=== PATIENT | male | born 1945 | race Caucasian/White ===

== ENCOUNTER 2016-06-15 12:11 | Observation (INO) | payer MEDICARE, OTHER ==
[~2016-06-15] VITALS: Ht 180.3 cm; Wt 76.7 kg
[2016-06-15 12:51] LABS: BASO % 0.2 % (0.0-1.0); EOS % 0.5 % (0.0-3.0); LARGE UNSTAINED CELL # 0.1 K/mm3 (0.0-0.4); LARGE UNSTAINED CELL % 1.2 % (0.0-4.0); LYMPH # 0.8 K/mm3 (1.5-4.5); LYMPH % 16.8 % (24.0-44.0); MEAN CORPUSCULAR HEMOGLOBIN 27.9 pg (27.0-33.0); MEAN CORPUSCULAR HGB CONC 32.5 g/dl (32.0-36.5); MEAN CORPUSCULAR VOLUME 85.8 fl (80.0-96.0); MONO # 0.2 K/mm3 (0.0-0.8); MONO % 4.9 % (0.0-5.0); NEUTROPHILS # 3.2 K/mm3 (1.8-7.7); NEUTROPHILS % 76.3 % (36.0-66.0); PLATELET COUNT, AUTOMATED 327 k/mm3 (150-450); WHITE BLOOD COUNT 4.2 K/mm3 (4.0-10.0)
--- NOTE | 2016-06-15 13:00 | REP ---
Clinical: Chest pain . Comparison: 03/30/2016 . Findings: The mediastinum and cardiac silhouette are stable and within normal limits for portable technique. The lung seals are clear without acute consolidation, effusion, or pneumothorax. Skeletal structures are intact. Impression: Normal portable chest x-ray Signed by Stanley Tatum MD 06/15/2016 12:51 P
[2016-06-15 13:19] LABS: ANION GAP 12 MEQ/L (8-16); BLOOD UREA NITROGEN 14 MG/DL (7-18); CALCIUM LEVEL 9.1 MG/DL (8.8-10.2); CARBON DIOXIDE LEVEL 24 MEQ/L (21-32); CHLORIDE LEVEL 104 MEQ/L (98-107); CREATININE FOR GFR 0.93 MG/DL (0.70-1.30); GLOMERULAR FILTRATION RATE > 60.0 (>42); GLUCOSE, FASTING 99 MG/DL (83-110); POTASSIUM SERUM 3.9 MEQ/L (3.5-5.1); SODIUM LEVEL 140 MEQ/L (136-145)
[2016-06-15] MEDS ORDERED: ISOVUE-370 76% 100ML VIAL (Q9967) As Ordered ONE (13:40)
--- NOTE | 2016-06-15 14:21 | REP ---
Clinical: Acute chest pain with elevated D-dimer levels. Technique: Axial contrast enhanced images from the thoracic inlet to the upper abdomen using 100 ml Isovue 370 intravenous contrast material with coronal and sagittal re-formations. Findings: Satisfactory enhancement of the pulmonary vasculature is achieved and no filling defects are identified to suggest pulmonary embolus. Thoracic aorta is normal caliber without aneurysm or dissection. Heart and pericardium are normal. Lung seals demonstrate chronic emphysematous changes with bronchiectasis and right lower lobe scarring. No acute consolidation, pleural effusion or pneumothorax. No significant adenopathy. Musculoskeletal structures demonstrate age-related changes without focal osseous abnormality. Impression: No evidence for pulmonary embolus. Chronic emphysematous changes with bronchiectasis and right lower lobe scarring. No acute pleuroparenchymal or mediastinal process. Signed by Stanley Tatum MD 06/15/2016 02:12 P
[2016-06-15] MEDS ORDERED: GI COCKTAIL 50ML BTL(HYOSCYAMINE/MAALOX/LIDOCAINE VISCOUS)(1:3:1) As Ordered ONE (15:42)
[2016-06-15 16:09] LABS: ALBUMIN/GLOBULIN RATIO 1.03 (1.00-1.93); ALKALINE PHOSPHATASE 78 U/L (45-117); ALT/SGPT 21 U/L (12-78); AST/SGOT 23 U/L (15-37); BILIRUBIN,DIRECT < 0.1 MG/DL (0.0-0.2); BILIRUBIN,TOTAL 0.2 MG/DL (0.2-1.0); TOTAL PROTEIN 5.9 GM/DL (6.4-8.2)
[2016-06-15] MEDS ORDERED: METH2.5TA PO (16:44)
[2016-06-15] MEDS ORDERED: HYDR200T3 PO (16:44)
[2016-06-15] MEDS ORDERED: NITR4TASL SL (16:44)
[2016-06-15] MEDS ORDERED: FAMO1TAB11 PO (16:44)
[2016-06-15] MEDS ORDERED: ROSU10TA2 PO (16:44)
[2016-06-15] MEDS ORDERED: FOLI1TAB2 PO (16:48)
[2016-06-15] MEDS ORDERED: TUNA OMEGA 3 OIL PO (16:48)
[2016-06-15] MEDS ORDERED: ASPI1TAB PO (16:48)
[2016-06-15] MEDS ORDERED: [UNRECOGNIZED DRUG - OTHER] PO (16:48)
[2016-06-15] MEDS ORDERED: PROB1TAB PO (16:48)
[2016-06-15] MEDS ORDERED: [UNRECOGNIZED DRUG - OTHER] PO (16:48)
[2016-06-15] MEDS ORDERED: SUCRALFATE 1 GM TAB As Ordered ONE (17:11)
[2016-06-15] MEDS ORDERED: ONDANSETRON 4MG/2ML VIAL (J2405) IV PRN (20:45)
[2016-06-15 21:30] VITALS: BP 114/60
[2016-06-15 22:00] VITALS: PULSE 77
[2016-06-15] MEDS ORDERED: NITROGLYCERIN 0.4 MG SUBL TABLET SL PRN (22:45)
[2016-06-15] MEDS ORDERED: ACETAMINOPHEN 325 MG TAB As Ordered ONE (23:04)
[2016-06-15] MEDS: ACETAMINOPHEN TAB 650MG DOSE (2X325MG) PO PRN (23:13)
[2016-06-16] VITALS (7 sets, daily range): BP systolic 111–136; BP diastolic 62–73; PULSE 55–60
--- NOTE | 2016-06-16 00:20 | REPUSA ---
Clinical history: right inguinal fullness. Findings: Real-time ultrasound imaging of the right inguinal region was performed. There is no eviden ce of a hernia. Normal heterogeneous fibroglandular tissue is noted. No focal defined mass or cystic lesion is appreciated. No evidence of calcifications are appreciated. No other gross abnormalities. Impression: Unremarkable ultrasound examination of the right inguinal region. No evidence of a hernia .
--- NOTE | 2016-06-16 00:20 | REPUSA ---
Clinical history: nausea, weight loss. Findings: The pancreas is limited in visualization secondary to overlying bowel gas, but appears benita sly unremarkable. The liver demonstrates uniform echotexture and echogenicity, with no mass lesions. The gallbladder is unremarkable. The common bile duct measures 6 mm and is within normal limits. The right kidney measures 11.5 x 7.2 x 5.3 cm and is unremarkable. There is no ascites. Impression: Unremarkable ultrasound examination of the right upper quadrant.
--- NOTE | 2016-06-16 03:17 | HPE ---
DATE OF ADMISSION: 06/15/2016 PRIMARY CARE PHYSICIAN: Dr. Mohamud Holly CHIEF COMPLAINT: Chest pain. HISTORY OF PRESENT ILLNESS: 70-year-old male with history of rheumatoid arthritis currently on methotrexate and Plaquenil, prostate cancer status post prostatectomy with residual mild stress incontinence, lumbar degenerative disc disease, coronary artery disease (CAD) status post stent in [address] Duran in [place], reflux esophagitis per esophagogastroduodenoscopy (EGD) in 2005, hyperlipidemia, right inguinal hernia, seronegative rheumatoid arthritis, presented to the emergency room with acute onset of chest pain that started at 5-6 a.m. this morning. Patient tried to stand up straight, when he developed heaviness in the chest, not able to catch his breath, complained of some weakness and pressure radiating down underneath the arm pit and down the left arm. Patient said his heart was racing with radiation to the arm pit and down the left arm with diaphoresis and hot flashes, almost passed out with lightheadedness and dizziness. Patient had taken nitroglycerin at 11:30 and took another at 10 a.m. Similar episode about three weeks ago. Patient was recently seen by Dr. Duran in April 2016. He had a stress test about one year ago. Patient was shoveling snow yesterday with no issues. He also complains of feeling fullness, decrease in appetite with a 30 pound weight loss in the past year. He describes the pain as crampy abdominal sharp pain, feeling like he doubles over in the right upper quadrant. Hospitalist service was called for admission due to complaints of chest pain. CT chest was negative for pulmonary embolism. Patient was given gastrointestinal (GI) cocktail with no resolution of symptoms. He had taken nitroglycerin with no resolution of symptoms as well. Troponin was less than 0.002. Room Attendants, Dr. Enrique was consulted. EKG currently with Dr. Enrique. PAST MEDICAL HISTORY: 1. Rheumatoid arthritis. 2. Reflux. 3. Hypercholesterolemia. 4. Prostate cancer. 5. Hernia. 6. CAD. PAST SURGICAL HISTORY: 1. Five cardiac stents. 2. Prostatectomy. 3. Hernia repair. ALLERGIES: PROCARDIA. HOME MEDICATIONS: - rosuvastatin 10 mg daily - nitroglycerin 0.4 as needed - Plaquenil 200 twice a day - famotidine 20 daily - methotrexate 2.5 mg every 12 hours - folic acid one tablet daily SOCIAL HISTORY: Former smoker. Lives with at home; six children. REVIEW OF SYSTEMS: As per history of present illness (HPI). PHYSICAL EXAMINATION: Blood pressure is 113/59, pulse 95, sinus, respiratory rate 20, temperature 97, pulse oximetry 100% on room air, 77.1 kg, 5 feet 11 inches. GENERAL: Patient is awake, alert, an oriented times three, answers questions appropriately. No cyanosis or clubbing. No icterus or jaundice. No jugular venous distention. LUNGS: Clear to auscultation. No wheezing, rales, or rhonchi. HEART: S1, S2, sinus rhythm. ABDOMEN: Soft, nontender. Right upper quadrant slight tenderness on exam. No rebound or guarding. Positive bowel sounds. EXTREMITIES: No cyanosis, clubbing, or pitting edema. EKG sinus ventricular rate 84. normal. no st depression, elevation, or t wave inversions NM interval 193 ms, QRS dur 102 ms, QTC 390 ms LABORATORY DATA: White count 4.3, hemoglobin 12, hematocrit 38, platelet count 327, 76% neutrophils. Sodium 140, potassium 3.9, chloride 104, bicarbonate 24, BUN 14, creatinine 0.93, glucose 99, total bilirubin 0.2, direct bilirubin less than 0.1, AST 23, ALT 21, alkaline phosphatase 78, total CK 59, MB fraction 1.7, troponin less than 0.02, total protein 5.9, albumin of 3, lipase of 114. IMAGING STUDIES: CT chest: No PE. Chronic bronchiectasis and scarring. Right lower lobe scarring. No mediastinal process. ASSESSMENT AND PLAN: 70-year-old male with history of coronary artery disease (CAD) with five stents follows with Dr. Duran in [place], rheumatoid arthritis, reflux, hypercholesterolemia, prostate cancer, hernia presents with 30 pound weight loss, substernal chest pain with radiation down the left arm admitted for chest pain, rule out myocardial infarction (OR). 1. Chest pain, rule out OR. Patient is being admitted under telemetry. Nitroglycerin as needed. Dr. Enrique has been consulted. He is continued on aspirin 81mg. Monitor for worsening symptoms. Patient may need a stress test if positive enzymes and signs of angina. Telemetry monitoring and echocardiogram. 2. Weight loss, abnormal fullness, and epigastric discomfort. Abdominal ultrasound, CT in March 2016 was negative for gallstones. Liver function tests are normal. 3. History of rheumatoid arthritis. Continue on current medications of Plaquenil and methotrexate. 4. Hyperlipidemia. Continue on rosuvastatin. 5. History of CAD and stents. Continue on aspirin for now. Defer to Dr. Enrique for any changes in medications. Patient will be signed out to [facility] at 7 a.m. on 06/16/2016. JENELLE
[2016-06-16 07:13] LABS: BASO % 0.2 % (0.0-1.0); EOS # 0.1 K/mm3 (0.0-0.50); EOS % 1.8 % (0.0-3.0); LARGE UNSTAINED CELL % 1.1 % (0.0-4.0); LYMPH # 0.6 K/mm3 (1.5-4.5); MEAN CORPUSCULAR HEMOGLOBIN 27.6 pg (27.0-33.0); MEAN CORPUSCULAR HGB CONC 32.2 g/dl (32.0-36.5); MEAN CORPUSCULAR VOLUME 85.8 fl (80.0-96.0); MONO # 0.2 K/mm3 (0.0-0.8); MONO % 4.9 % (0.0-5.0); NEUTROPHILS # 2.6 K/mm3 (1.8-7.7); PLATELET COUNT, AUTOMATED 275 k/mm3 (150-450); WHITE BLOOD COUNT 3.4 K/mm3 (4.0-10.0)
[2016-06-16 07:39] LABS: ANION GAP 6 MEQ/L (8-16); BLOOD UREA NITROGEN 9 MG/DL (7-18); CALCIUM LEVEL 8.2 MG/DL (8.8-10.2); CARBON DIOXIDE LEVEL 26 MEQ/L (21-32); CHLORIDE LEVEL 108 MEQ/L (98-107); CREATININE FOR GFR 0.72 MG/DL (0.70-1.30); GLOMERULAR FILTRATION RATE > 60.0 (>42); GLUCOSE, FASTING 88 MG/DL (83-110); POTASSIUM SERUM 3.8 MEQ/L (3.5-5.1); SODIUM LEVEL 140 MEQ/L (136-145)
--- NOTE | 2016-06-16 08:33 | ECGEPIP ---
Stationary ECG Study [facility] - ED Test Date: 2016-06-15 Pat Name: MARGARITO ARAUJO Department: Room: - Gender: M Emergency Response Officer: : 1945 Requested By: Lakesha Aguayo Order Number: [id number] Reading MD: Lakesha Aguayo Measurements Intervals [place] Rate: 84 P: 70 CA: 193 QRS: 54 QRSD: 102 T: 73 QT: 349 QTc: 414 Interpretive Statements SINUS RHYTHM NSTTW ABNORMALITY NO PRIOR FOR COMPARISON Electronically Signed On 06-16-2016 8:32:53 EST by Lakesha Aguayo
[2016-06-16 08:44] LABS: URIC ACID 6.1 MG/DL (3.5-7.2)
[2016-06-16] MEDS ORDERED: ACETAMINOPHEN TAB 650MG DOSE (2X325MG) As Ordered ONE (08:45)
[2016-06-16] MEDS ORDERED: FOLIC ACID 1 MG TAB PO SCH (09:00)
[2016-06-16] MEDS ORDERED: ENOXAPARIN 40 MG/0.4 ML SYRINGE (J1650) SC SCH (09:00)
[2016-06-16] MEDS ORDERED: HYDROXYCHLOROQUINE 200 MG TAB PO SCH (09:00)
[2016-06-16] MEDS ORDERED: ASPIRIN 81 MG ENTERIC TAB PO SCH (09:00)
[2016-06-16] MEDS ORDERED: OMEGA-3 1050MG CAPSULE PO SCH (09:00)
[2016-06-16] MEDS: ACETAMINOPHEN TAB 650MG DOSE (2X325MG) PO PRN (09:10)
--- NOTE | 2016-06-16 10:56 | EDDOCDS ---
Physician Documentation [facility] Name: Nic Mahoney Age: 70 yrs Sex: Male : 1945 Arrival Date: 06/15/2016 Time: 12:11 Bed Admit Hold Private MD: Disposition: 06/15/16 16:07 Hospitalization ordered by Erika Aguirre for Inpatient Admission. Preliminary diagnosis is Chest pain, unspecified. - Bed requested for 4 [facility] (Formerly [facility]). - Status is Inpatient Admission. hs1 - Condition is Stable. - Problem is new. - Symptoms are resolved. Historical: - Allergies: Procardia ("squirrely" goofy feeling); - Home Meds: 1. rosuvastatin 10 mg oral tab 1 tab once daily (Last dose: 06/14/2016) 2. Nitrostat 0.4 mg SL subl (Last dose: 06/15/2016 11:30) 3. hydroxychloroquine 200 mg oral tab 2 times per day (Last dose: 06/14/2016) 4. famotidine 20 mg Oral tab 1 tab once daily (Last dose: 06/14/2016) 5. methotrexate sodium 2.5 mg Oral tab 4 tabs every 12 hours on saturdays 6. folic acid 1 mg Oral tab 1 tab once daily (Last dose: 06/14/2016) - PMHx: Rheumatoid Arthritis; GERD; Hypercholesterolemia; prostates cancer; hernia; - PSHx: 5 cardiac stents; Prostatectomy; Hernia repair; - Social history: Smoking status: Patient states former smoker of tobacco. No barriers to communication noted, The patient speaks fluent Faroese, Speaks appropriately for age. - Family history: Not pertinent. - : The pt / caregiver states he / she is not on anticoagulants. Home medication list is obtained from the patient. - Exposure Risk Screening:: None identified. Vital Signs: 06/15 12:01 BP 163 / 77 (auto/); mlb1 12:01 Pulse 82 MON; Pulse Ox 93% ; mlb1 12:13 BP 113 / 59; Pulse 95; Resp 20; Temp 97.0(O); Weight 77.11 kg / 170 lbs (R); Height 5 lr2 ft. 11 in. (180.34 cm); Pain 7/10; 12:30 BP 108 / 62 (auto/); mlb1 12:32 Pulse 86 MON; Pulse Ox 91% ; mlb1 13:00 Pulse 80 MON; Pulse Ox 100% ; mlb1 13:00 BP 103 / 57 (auto/); mlb1 13:30 BP 105 / 59 (auto/); mlb1 13:30 Pulse 76 MON; Pulse Ox 100% ; mlb1 14:00 BP 114 / 61 (auto/); mlb1 14:00 Pulse 78 MON; Pulse Ox 96% ; mlb1 14:30 BP 102 / 62 (auto/); mlb1 14:30 Pulse 78 MON; Pulse Ox 100% ; mlb1 15:00 BP 106 / 62 (auto/); mlb1 15:00 Pulse 78 MON; Pulse Ox 98% ; mlb1 15:30 BP 107 / 65 (auto/); mlb1 15:30 Pulse 76 MON; Pulse Ox 99% ; mlb1 16:01 BP 114 / 67 (auto/); mlb1 16:01 Pulse 76 MON; Pulse Ox 100% ; mlb1 16:31 BP 117 / 61 (auto/); mlb1 16:31 Pulse 76 MON; Pulse Ox 96% ; mlb1 17:01 BP 116 / 64 (auto/); mlb1 17:01 Pulse 76 MON; Pulse Ox 97% ; mlb1 17:31 BP 110 / 63 (auto/); mlb1 17:31 Pulse 74 MON; Pulse Ox 99% ; mlb1 18:01 BP 127 / 70 (auto/); mlb1 18:01 Pulse 74 MON; Pulse Ox 99% ; mlb1 18:31 BP 149 / 76 (auto/); mlb1 18:31 Pulse 84 MON; Pulse Ox 99% ; mlb1 19:31 BP 117 / 63 (auto/); js15 19:31 Pulse 94 MON; Pulse Ox 98% ; js15 20:01 BP 98 / 72 (auto/); js15 20:02 Pulse 76 MON; Pulse Ox 97% ; js15 20:31 BP 129 / 61 (auto/); js15 20:31 Pulse 74 MON; Pulse Ox 97% ; js15 21:01 BP 122 / 70 (auto/); js15 21:01 Pulse 70 MON; Pulse Ox 97% ; js15 12:13 Body Mass Index 23.71 (77.11 kg, 180.34 cm) lr2 MDM: 12:15 ECG WITH READING ER PHYS+CARDIAG ordered. EDMS 12:26 Farmworker Fur/Pulse Ox/q 30 min VS ordered. sd1 12:26 IV Saline Lock ordered. sd1 12:26 Rhythm Strip to chart ordered. sd1 12:26 Undress patient appropriately for examination ordered. sd1 12:26 Basic Metabolic Profile Ordered. EDMS 12:26 CBC with Diff Ordered. EDMS 12:26 Cardiac Injury Profile Ordered. EDMS 12:26 Troponin Ordered. EDMS 12:28 portable chest Ordered. EDMS 13:04 CBC with Diff Reviewed. sd1 13:06 D-Dimer Quant Ordered. EDMS 13:28 D-Dimer Quant Reviewed. sd1 13:28 Basic Metabolic Profile Reviewed. sd1 13:28 Cardiac Injury Profile Reviewed. sd1 13:28 Troponin Reviewed. sd1 13:28 portable chest Reviewed. sd1 13:32 NS 0.9% 1000 ml IV at 100 mL/hr continuous ordered. sd1 13:32 CT Chest Angio R/O PE Ordered. EDMS 13:46 Financial registration complete. jp5 14:04 [facility] Payment Agreement was scanned into [employer] and attached to record. jp5 15:40 GI Cocktail - (Alum-Mag Hydroxide-Simeth 30 ml, Lidocaine 10 ml, Hyoscyamine 10 ml) PO sd1 once; Pre-mixed 50mL unit dose ordered. 15:42 CT Chest Angio R/O PE Reviewed. sd1 15:44 BED REQUEST+ADM ordered. EDMS 16:47 Sucralfate 1 grams PO once ordered. sd1 16:47 LIVER PROFILE Reviewed. sd1 16:47 Basic Metabolic Profile Reviewed. sd1 16:47 Cardiac Injury Profile Reviewed. sd1 16:47 Troponin Reviewed. sd1 16:47 LIPASE Reviewed. sd1 17:50 REGULAR+DIET ordered. EDMS 20:33 Admission / Observation Status ordered. EDMS 20:34 NO ADDED SALT DIET ordered. EDMS 20:35 CARDIAC MARKER PANEL Ordered. EDMS 20:35 BASIC METABOLIC PROFILE Ordered. EDMS 20:35 CBC WITH DIFFERENTIAL Ordered. EDMS 20:35 CARDIAC MARKER PANEL Ordered. EDMS 23:14 GALLBLADDER US Ordered. EDMS 23:16 Pelvis, limited US Ordered. EDMS 06/16 02:27 CARDIAC MARKER PANEL Ordered. EDMS 08:28 ELECTROCARDIOGRAM ADULT ordered. EDMS 08:33 URIC ACID Ordered. EDMS Administered Medications: 06/15 13:35 Drug: NS 0.9% 1000 ml [sodium chloride 0.9 % intravenous solution] Route: IV; Rate: 100 ms2 mL/hr; Site: right antecubital; 15:47 Drug: GI Cocktail - (Alum-Mag Hydroxide-Simeth Suspension 225 mg-200 mg-25 mg/5 mL 30 ck1 ml, Lidocaine Liquid 2 % 10 ml, Hyoscyamine Liquid 10 ml) Route: PO; 17:15 Drug: Sucralfate 1 grams [sucralfate 1 gram tablet (1 tabs)] Route: PO; mlb1 Signatures: Dispatcher [employer] EDMS Lakesha Aguayo MD MD sd1 Barbara Recinos RN RN srm Valdez Morales RN RN mlb1 Viraj Bernard MD MD br1 Priti Clayton RN RN hs1 Audrey Barry RN RN sls2 Austin Briones jp5 Manoj Orourke RN ms2 Sarita Pringle RN ck1 The chart was reviewed and I authenticate all verbal orders and agree with the evaluation and treatment provided.Corrections: (The following items were deleted from the chart) 15:51 15:44 LIPASE+LAB ordered. EDMS EDMS 15:51 15:44 LIVER PROFILE+LAB ordered. EDMS EDMS 23:14 23:04 ABD COMPLETE US ordered. EDMS EDMS 06/16 02:26 02 20:35 CARDIAC MARKER PANEL ordered. EDMS EDMS 06/16 08:33 08:27 URIC ACID ordered. EDMS EDMS 09:49 06/15 20:34 ELECTROCARDIOGRAM ADULT ordered. EDMS EDMS Attachments: 14:04 [facility] Payment Agreement jp5 MTDD
--- NOTE | 2016-06-16 10:57 | EDDOCDS ---
Nurse's Notes [facility] Name: Margarito Mahoney Age: 70 yrs Sex: Male : 1945 Arrival Date: 06/15/2016 Time: 12:11 Bed Admit Hold Private MD: Diagnosis: Chest pain, unspecified Presentation: 06/15 12:31 Presenting complaint: Patient states: chest pain started between 5-6 am/ increased- srm took 2 nitro at 1115 and 1130. nitro helped the pain. feeling weak nausea, lightheadenss for a few days. pain radiates to under left arm. Aspirin was not taken prior to arrival. Adult Sepsis Screening: The patient does not have new or worsening altered mentation. Patient's respiratory rate is less than 22. Systolic blood pressure is greater than 100. Patient has a qSOFA score of 0- Negative Sepsis Screen. Suicide/Homicide risk assessment- the patient denies having any suicidal and/or homicidal ideations and does not present with any other emotional, behavioral or mental health complaints. Status: Patient is not a room service manager or dependent. Transition of care: patient was not received from another setting of care. 12:31 Acuity: CODY Level 2 srm 12:31 Method Of Arrival: Walkin/Carried/Asstd srm 12:41 Presenting complaint: Patient states: chest hurts with deep[ breathing. also hx of 30 srm lb weight loss since november and pt states lower legs are swollen. 12:44 Presenting complaint: Patient states: epigastric pain for probably 3 weeks but worsened srm yesterday. Triage Assessment: 12:39 General: Appears in no apparent distress, Behavior is appropriate for age, cooperative. srm Pain: Pain currently is 6 out of 10 on a pain scale. Cardiovascular: Chest pain is described as vague, radiates to left under arm left episodes are continuous began 6.5-7 hours. Historical: - Allergies: Procardia ("squirrely" goofy feeling); - Home Meds: 1. rosuvastatin 10 mg oral tab 1 tab once daily (Last dose: 06/14/2016) 2. Nitrostat 0.4 mg SL subl (Last dose: 06/15/2016 11:30) 3. hydroxychloroquine 200 mg oral tab 2 times per day (Last dose: 06/14/2016) 4. famotidine 20 mg Oral tab 1 tab once daily (Last dose: 06/14/2016) 5. methotrexate sodium 2.5 mg Oral tab 4 tabs every 12 hours on saturdays 6. folic acid 1 mg Oral tab 1 tab once daily (Last dose: 06/14/2016) - PMHx: Rheumatoid Arthritis; GERD; Hypercholesterolemia; prostates cancer; hernia; - PSHx: 5 cardiac stents; Prostatectomy; Hernia repair; - Social history: Smoking status: Patient states former smoker of tobacco. No barriers to communication noted, The patient speaks fluent Syrian, Speaks appropriately for age. - Family history: Not pertinent. - : The pt / caregiver states he / she is not on anticoagulants. Home medication list is obtained from the patient. - Exposure Risk Screening:: None identified. Screenin:53 Screening information is obtained from the patient. Fall risk: No risks identified. mlb1 Assistance ADL's: requires no assistance with activities of daily living. Abuse/DV Screen: The patient / caregiver reports he/she is: not in a situation that causes fear, pain or injury. Nutritional screening: No deficits noted. Advance Directives: Currently, there is no health care proxy. home support is adequate. Assessment: 13:35 General: Appears in no apparent distress, comfortable, daughter with pt. Behavior is ms2 cooperative. Neurological: Level of Consciousness is awake, alert, obeys commands. Cardiovascular: Rhythm is sinus rhythm. Respiratory: Airway is patent Respiratory effort is even, unlabored, Respiratory pattern is regular, symmetrical. Derm: Skin is pink, warm & dry. Musculoskeletal: Range of motion intact in all extremities. 14:21 General: Appears in no apparent distress, comfortable, Behavior is anxious, mlb1 cooperative. Pain: Location: mid-sternal area Pain currently is 4 out of 10 on a pain scale. Neurological: No deficits noted. Respiratory: No deficits noted. 15:47 General: Appears in no apparent distress, comfortable, Behavior is appropriate for age, ck1 cooperative. Pain: Location: epigastric area Pain currently is 4 out of 10 on a pain scale. Neurological: Level of Consciousness is awake, alert, obeys commands. Respiratory: Respiratory effort is even, unlabored, Respiratory pattern is regular, symmetrical. GI: Reports epigastric pain. Derm: Skin is pink, warm & dry. 16:21 General: Appears in no apparent distress, comfortable, Behavior is appropriate for age, mlb1 cooperative. Pain: Location: mid-sternal area Pain currently is 2 out of 10 on a pain scale. Neurological: No deficits noted. 17:31 General: Appears in no apparent distress, comfortable, Behavior is appropriate for age, mlb1 cooperative. Pain: Location: mid-sternal area Pain currently is 2 out of 10 on a pain scale. Neurological: No deficits noted. Cardiovascular: Rhythm is sinus rhythm No ectopy. 18:53 General: Appears in no apparent distress, comfortable, Behavior is appropriate for age, mlb1 cooperative. Pain: Location: mid-sternal area Pain currently is 1 out of 10 on a pain scale. Neurological: No deficits noted. Respiratory: No deficits noted. 19:15 General: Appears in no apparent distress, comfortable, Behavior is appropriate for age, js15 cooperative, assisted pt to bathroom and back to bed, pt walked independently without shortness of breath or dizziness. Neurological: Level of Consciousness is awake, alert, obeys commands, Oriented to person, place, time. Neurological: Moves all extremities. Full function Gait is steady, Speech is normal, Facial symmetry appears normal. Cardiovascular: Rhythm is sinus rhythm. Respiratory: Airway is patent Respiratory effort is even, unlabored, Respiratory pattern is regular, symmetrical. Derm: Skin is pink, warm & dry. Decubitus located on sacrum approximately small, pea sized circular open wound noted at bottom of sacrum, top of buttocks; barrier ointment and dressing applied. 20:45 Reassessment: Patient appears in no apparent distress at this time. Admitting physician america at bedside; will continue to monitor. 06/16 07:43 General: monitor is sr with 1st degree block with rate of 65. jmk Vital Signs: 06/15 12:01 BP 163 / 77 (auto/); mlb1 12:01 Pulse 82 MON; Pulse Ox 93% ; mlb1 12:13 BP 113 / 59; Pulse 95; Resp 20; Temp 97.0(O); Weight 77.11 kg (R); Height 5 ft. 11 in. lr2 (180.34 cm); Pain 11/01; 12:30 BP 108 / 62 (auto/); mlb1 12:32 Pulse 86 MON; Pulse Ox 91% ; mlb1 13:00 Pulse 80 MON; Pulse Ox 100% ; mlb1 13:00 BP 103 / 57 (auto/); mlb1 13:30 BP 105 / 59 (auto/); mlb1 13:30 Pulse 76 MON; Pulse Ox 100% ; mlb1 14:00 BP 114 / 61 (auto/); mlb1 14:00 Pulse 78 MON; Pulse Ox 96% ; mlb1 14:30 BP 102 / 62 (auto/); mlb1 14:30 Pulse 78 MON; Pulse Ox 100% ; mlb1 15:00 BP 106 / 62 (auto/); mlb1 15:00 Pulse 78 MON; Pulse Ox 98% ; mlb1 15:30 BP 107 / 65 (auto/); mlb1 15:30 Pulse 76 MON; Pulse Ox 99% ; mlb1 16:01 BP 114 / 67 (auto/); mlb1 16:01 Pulse 76 MON; Pulse Ox 100% ; mlb1 16:31 BP 117 / 61 (auto/); mlb1 16:31 Pulse 76 MON; Pulse Ox 96% ; mlb1 17:01 BP 116 / 64 (auto/); mlb1 17:01 Pulse 76 MON; Pulse Ox 97% ; mlb1 17:31 BP 110 / 63 (auto/); mlb1 17:31 Pulse 74 MON; Pulse Ox 99% ; mlb1 18:01 BP 127 / 70 (auto/); mlb1 18:01 Pulse 74 MON; Pulse Ox 99% ; mlb1 18:31 BP 149 / 76 (auto/); mlb1 18:31 Pulse 84 MON; Pulse Ox 99% ; mlb1 19:31 BP 117 / 63 (auto/); js15 19:31 Pulse 94 MON; Pulse Ox 98% ; js15 20:01 BP 98 / 72 (auto/); js15 20:02 Pulse 76 MON; Pulse Ox 97% ; js15 20:31 BP 129 / 61 (auto/); js15 20:31 Pulse 74 MON; Pulse Ox 97% ; js15 21:01 BP 122 / 70 (auto/); js15 21:01 Pulse 70 MON; Pulse Ox 97% ; js15 12:13 Body Mass Index 23.71 (77.11 kg, 180.34 cm) lr2 Vitals: 12:11 RN notified that patient meets Red Flag criteria. lr2 12:16 Log In Time: June 15, 2016 at 12:11. lr2 ED Course: 12:12 Patient visited by Dania Elizabeth. lr2 12:12 Patient moved to Waiting lr2 12:16 Patient moved to Pre RCE lr2 12:20 Patient moved to I6 / 28 ms18 12:27 Eleanor Urrutia,RN is Primary Nurse. ms18 12:27 Patient moved to 17 ms18 12:33 Triage Initiated srm 12:35 Lakesha Aguayo MD is Attending Physician. sd1 12:35 Patient visited by Lakesha Aguayo MD. sd1 12:40 Basic Metabolic Profile Sent. dsf 12:40 CBC with Diff Sent. dsf 12:41 Cardiac Injury Profile Sent. dsf 12:41 Troponin Sent. dsf 12:41 Inserted saline lock: 20 gauge in right antecubital area The patient tolerated the dsf procedure well. 12:42 The patient / caregiver is instructed regarding the plan of care and ED course. Cardiac srm monitor on. Pulse ox on. NIBP on. 12:42 EKG done. (by ED staff). Reviewed by Lakesha Aguayo MD at 1225. srm 12:45 Portable x-ray done. srm 13:11 portable chest Returned. EDMS 13:39 Patient visited by Manoj Orourke RN. ms2 13:40 The patient / caregiver is instructed regarding the plan of care and ED course. Cardiac ms2 monitor on. Pulse ox on. NIBP on. Warm blanket given. 13:41 IV is patent, is intact, is free of redness or swelling. solution is infusing as ms2 ordered. 14:04 [facility] Payment Agreement was scanned into Buz and attached to record. jp5 14:21 Patient visited by Valdez Morales RN. mlb1 14:48 CT Chest Angio R/O PE Returned. EDMS 15:35 Patient visited by Deepak Morgan. jml1 16:07 Jameson Enrique MD is Hospitalizing Provider. sd1 16:22 Patient visited by Valdez Morales, ERICA. mlb1 17:31 Patient visited by Valdez Morales, ERICA. mlb1 18:54 No procedures done that require assistance. mlb1 18:55 Patient visited by Valdez Morales, ERICA. mlb1 18:59 Primary Nurse role handed off by Eleanor Urrutia RN kas2 20:38 Hospitalizing Provider role handed off by Jameson Enrqiue MD br1 20:38 Erika Aguirre is Hospitalizing Provider. br1 21:25 Patient moved to 19 sls1 21:39 Patient visited by Amy Rivera PCA. rs6 23:14 Patient moved to Ultrasound en 06/16 00:09 Patient moved to 19 en 00:35 GALLBLADDER US Returned. EDMS 00:35 Pelvis, limited US Returned. EDMS 01:41 Patient moved to Admit Hold sls1 07:58 EKG done. jrd 08:42 EKG-ADULT Returned. EDMS Administered Medications: 06/15 13:35 Drug: NS 0.9% 1000 ml [sodium chloride 0.9 % intravenous solution] Route: IV; Rate: 100 ms2 mL/hr; Site: right antecubital; 15:47 Drug: GI Cocktail - (Alum-Mag Hydroxide-Simeth Suspension 225 mg-200 mg-25 mg/5 mL 30 ck1 ml, Lidocaine Liquid 2 % 10 ml, Hyoscyamine Liquid 10 ml) Route: PO; 17:15 Drug: Sucralfate 1 grams [sucralfate 1 gram tablet (1 tabs)] Route: PO; mlb1 Order Results: Lab Order: Basic Metabolic Profile; SPEC'M 06/15/16 12:38 Test: GLUCOSE, FASTING; Value: 99; Range: 83-110; Units: MG/DL; Status: F Test: BLOOD UREA NITROGEN; Value: 14; Range: 7-18; Units: MG/DL; Status: F Test: CREATININE FOR GFR; Value: 0.93; Range: 0.70-1.30; Units: MG/DL; Status: F Test: GLOMERULAR FILTRATION RATE; Value: > 60.0; Range: >42; Status: F Test: SODIUM LEVEL; Value: 140; Range: 136-145; Units: MEQ/L; Status: F Test: POTASSIUM SERUM; Value: 3.9; Range: 3.5-5.1; Units: MEQ/L; Status: F Test: CHLORIDE LEVEL; Value: 104; Range: 98-107; Units: MEQ/L; Status: F Test: CARBON DIOXIDE LEVEL; Value: 24; Range: 21-32; Units: MEQ/L; Status: F Test: ANION GAP; Value: 12; Range: 8-16; Units: MEQ/L; Status: F Test: CALCIUM LEVEL; Value: 9.1; Range: 8.8-10.2; Units: MG/DL; Status: F Test Note: ; Units are mL/min/1.73 m2 Chronic Kidney Disease Staging per NKF: Stage I & II GFR >=60 Normal to Mildly Decreased Stage III GFR 30-59 Moderately Decreased Stage IV GFR 15-29 Severely Decreased Stage V GFR <15 Very Little GFR Left ESRD GFR <15 on TRIM MACHINE ADJUSTER Lab Order: CBC with Diff; SPEC'M 06/15/16 12:38 Test: WHITE BLOOD COUNT; Value: 4.2; Range: 4.0-10.0; Units: K/mm3; Status: F Test: RED BLOOD COUNT; Value: 4.48; Range: 4.30-6.10; Units: M/mm3; Status: F Test: HEMOGLOBIN; Value: 12.5; Range: 14.0-18.0; Abnormal: Below low normal; Units: g/dl; Status: F Test: HEMATOCRIT; Value: 38.4; Range: 42.0-52.0; Abnormal: Below low normal; Units: %; Status: F Test: MEAN CORPUSCULAR VOLUME; Value: 85.8; Range: 80.0-96.0; Units: fl; Status: F Test: MEAN CORPUSCULAR HEMOGLOBIN; Value: 27.9; Range: 27.0-33.0; Units: pg; Status: F Test: MEAN CORPUSCULAR HGB CONC; Value: 32.5; Range: 32.0-36.5; Units: g/dl; Status: F Test: RED CELL DISTRIBUTION WIDTH; Value: 15.0; Range: 11.5-14.5; Abnormal: Above high normal; Units: %; Status: F Test: PLATELET COUNT, AUTOMATED; Value: 327; Range: 150-450; Units: k/mm3; Status: F Test: NEUTROPHILS %; Value: 76.3; Range: 36.0-66.0; Abnormal: Above high normal; Units: %; Status: F Test: LYMPH %; Value: 16.8; Range: 24.0-44.0; Abnormal: Below low normal; Units: %; Status: F Test: MONO %; Value: 4.9; Range: 0.0-5.0; Units: %; Status: F Test: EOS %; Value: 0.5; Range: 0.0-3.0; Units: %; Status: F Test: BASO %; Value: 0.2; Range: 0.0-1.0; Units: %; Status: F Test: LARGE UNSTAINED CELL %; Value: 1.2; Range: 0.0-4.0; Units: %; Status: F Test: NEUTROPHILS #; Value: 3.2; Range: 1.8-7.7; Units: K/mm3; Status: F Test: LYMPH #; Value: 0.8; Range: 1.5-4.5; Abnormal: Below low normal; Units: K/mm3; Status: F Test: MONO #; Value: 0.2; Range: 0.0-0.8; Units: K/mm3; Status: F Test: EOS #; Value: 0.0; Range: 0.0-0.50; Units: K/mm3; Status: F Test: BASO #; Value: 0.0; Range: 0.0-0.2; Units: K/mm3; Status: F Test: LARGE UNSTAINED CELL #; Value: 0.1; Range: 0.0-0.4; Units: K/mm3; Status: F Lab Order: Cardiac Injury Profile; [facility] 06/15/16 12:38 Test: CPK CREATINE PHOSPHOKINASE; Value: 59; Range: 39-308; Units: U/L; Status: F Test: CK-MB VALUE MASS; Value: 1.7; Range: 0.0-3.6; Units: NG/ML; Status: F Test: MB/CK RELATIVE INDEX; Value: 2.88; Range: < OR =4; Status: F Test Note: ; DIAGNOSIS CRITERIA MMB ng/ml Relative Index (RI) NON-AMI < or = 5 N/A [place] > 5 < or = 4 AMI > 5 > 4 Lab Order: Troponin; SPEC'06/15/16 12:38 Test: TROPONIN I; Value: < 0.02; Range: < 0.10; Units: NG/ML; Status: F Test Note: ; Troponin I Reference Interval for [employer] LOCI: 99th Percentile= 0.00-0.045 ng/ml Risk Stratification: <= 0.10 ng/ml Decreased Risk for Adverse Clinical Events. 0.10-1.50 ng/ml Increased Risk for Adverse Clinical Events. Evaluation of additional criterion and/or repeat testing in 2-6 hours is suggested to rule out myocardial damage. >= 1.50 ng/ml Indicative of Myocardial Injury. Lab Order: D-Dimer Quant; [facility] 06/15/16 12:38 Test: D-DIMER QUANT; Value: 2408.1; Range: <500; Abnormal: Above high normal; Units: ng/ml; Status: F Lab Order: LIVER PROFILE; [facility] 06/15/16 12:38 Test: AST/SGOT; Value: 23; Range: 15-37; Units: U/L; Status: F Test: ALT/SGPT; Value: 21; Range: 12-78; Units: U/L; Status: F Test: ALKALINE PHOSPHATASE; Value: 78; Range: 45-117; Units: U/L; Status: F Test: BILIRUBIN,TOTAL; Value: 0.2; Range: 0.2-1.0; Units: MG/DL; Status: F Test: BILIRUBIN,DIRECT; Value: < 0.1; Range: 0.0-0.2; Units: MG/DL; Status: F Test: TOTAL PROTEIN; Value: 5.9; Range: 6.4-8.2; Abnormal: Below low normal; Units: GM/DL; Status: F Test: ALBUMIN; Value: 3.0; Range: 3.2-5.2; Abnormal: Below low normal; Units: GM/DL; Status: F Test: ALBUMIN/GLOBULIN RATIO; Value: 1.03; Range: 1.00-1.93; Status: F Lab Order: LIPASE; [facility] 06/15/16 12:38 Test: LIPASE; Value: 114; Range: 73-393; Units: U/L; Status: F Lab Order: CARDIAC MARKER PANEL; [facility] 06/16/16 00:17 Test: CPK CREATINE PHOSPHOKINASE; Value: 39; Range: 39-308; Units: U/L; Status: F Test: CK-MB VALUE MASS; Value: 1.4; Range: 0.0-3.6; Units: NG/ML; Status: F Test: MB/CK RELATIVE INDEX; Value: 3.58; Range: < OR =4; Status: F Test: TROPONIN I; Value: 0.02; Range: < 0.10; Units: NG/ML; Status: F Test Note: ; DIAGNOSIS CRITERIA MMB ng/ml Relative Index (RI) NON-AMI < or = 5 N/A [place] > 5 < or = 4 AMI > 5 > 4 Lab Order: BASIC METABOLIC PROFILE; SPEC'06/16/16 06:51 Test: GLUCOSE, FASTING; Value: 88; Range: 83-110; Units: MG/DL; Status: F Test: BLOOD UREA NITROGEN; Value: 9; Range: 7-18; Units: MG/DL; Status: F Test: CREATININE FOR GFR; Value: 0.72; Range: 0.70-1.30; Units: MG/DL; Status: F Test: GLOMERULAR FILTRATION RATE; Value: > 60.0; Range: >42; Status: F Test: SODIUM LEVEL; Value: 140; Range: 136-145; Units: MEQ/L; Status: F Test: POTASSIUM SERUM; Value: 3.8; Range: 3.5-5.1; Units: MEQ/L; Status: F Test: CHLORIDE LEVEL; Value: 108; Range: 98-107; Abnormal: Above high normal; Units: MEQ/L; Status: F Test: CARBON DIOXIDE LEVEL; Value: 26; Range: 21-32; Units: MEQ/L; Status: F Test: ANION GAP; Value: 6; Range: 8-16; Abnormal: Below low normal; Units: MEQ/L; Status: F Test: CALCIUM LEVEL; Value: 8.2; Range: 8.8-10.2; Abnormal: Below low normal; Units: MG/DL; Status: F Test Note: ; Units are mL/min/1.73 m2 Chronic Kidney Disease Staging per NKF: Stage I & II GFR >=60 Normal to Mildly Decreased Stage III GFR 30-59 Moderately Decreased Stage IV GFR 15-29 Severely Decreased Stage V GFR <15 Very Little GFR Left ESRD GFR <15 on TRIM MACHINE ADJUSTER Test: URIC ACID; Range: 3.5-7.2; Units: MG/DL; Status: I Lab Order: CBC WITH DIFFERENTIAL; SPEC'06/16/16 06:51 Test: WHITE BLOOD COUNT; Value: 3.4; Range: 4.0-10.0; Abnormal: Below low normal; Units: K/mm3; Status: F Test: RED BLOOD COUNT; Value: 3.87; Range: 4.30-6.10; Abnormal: Below low normal; Units: M/mm3; Status: F Test: HEMOGLOBIN; Value: 10.7; Range: 14.0-18.0; Abnormal: Below low normal; Units: g/dl; Status: F Test: HEMATOCRIT; Value: 33.2; Range: 42.0-52.0; Abnormal: Below low normal; Units: %; Status: F Test: MEAN CORPUSCULAR VOLUME; Value: 85.8; Range: 80.0-96.0; Units: fl; Status: F Test: MEAN CORPUSCULAR HEMOGLOBIN; Value: 27.6; Range: 27.0-33.0; Units: pg; Status: F Test: MEAN CORPUSCULAR HGB CONC; Value: 32.2; Range: 32.0-36.5; Units: g/dl; Status: F Test: RED CELL DISTRIBUTION WIDTH; Value: 15.0; Range: 11.5-14.5; Abnormal: Above high normal; Units: %; Status: F Test: PLATELET COUNT, AUTOMATED; Value: 275; Range: 150-450; Units: k/mm3; Status: F Test: NEUTROPHILS %; Value: 76.0; Range: 36.0-66.0; Abnormal: Above high normal; Units: %; Status: F Test: LYMPH %; Value: 16.0; Range: 24.0-44.0; Abnormal: Below low normal; Units: %; Status: F Test: MONO %; Value: 4.9; Range: 0.0-5.0; Units: %; Status: F Test: EOS %; Value: 1.8; Range: 0.0-3.0; Units: %; Status: F Test: BASO %; Value: 0.2; Range: 0.0-1.0; Units: %; Status: F Test: LARGE UNSTAINED CELL %; Value: 1.1; Range: 0.0-4.0; Units: %; Status: F Test: NEUTROPHILS #; Value: 2.6; Range: 1.8-7.7; Units: K/mm3; Status: F Test: LYMPH #; Value: 0.6; Range: 1.5-4.5; Abnormal: Below low normal; Units: K/mm3; Status: F Test: MONO #; Value: 0.2; Range: 0.0-0.8; Units: K/mm3; Status: F Test: EOS #; Value: 0.1; Range: 0.0-0.50; Units: K/mm3; Status: F Test: BASO #; Value: 0.0; Range: 0.0-0.2; Units: K/mm3; Status: F Test: LARGE UNSTAINED CELL #; Value: 0.0; Range: 0.0-0.4; Units: K/mm3; Status: F Lab Order: CARDIAC MARKER PANEL; SPEC'M 06/16/16 06:51 Test: CPK CREATINE PHOSPHOKINASE; Value: 36; Range: 39-308; Abnormal: Below low normal; Units: U/L; Status: F Test: CK-MB VALUE MASS; Value: 1.3; Range: 0.0-3.6; Units: NG/ML; Status: F Test: MB/CK RELATIVE INDEX; Value: 3.61; Range: < OR =4; Status: F Test: TROPONIN I; Value: 0.02; Range: < 0.10; Units: NG/ML; Status: F Test Note: ; DIAGNOSIS CRITERIA MMB ng/ml Relative Index (RI) NON-AMI < or = 5 N/A [place] > 5 < or = 4 AMI > 5 > 4 Lab Order: URIC ACID; SPEC'M 06/16/16 06:51 Test: URIC ACID; Value: 6.1; Range: 3.5-7.2; Units: MG/DL; Status: F Radiology Order: EKG-ADULT Test: EKG-ADULT REASON FOR EXAMINATION: Chest Pain; Stationary ECG Study; [facility] - ED; ; Test Date: 2016-06-15; Pat Name: MARGARITO MAHONEY Department:; Room: -; Gender: M Assurance Senior Manager:; : 1945 Requested By: Lakesha Aguayo; Order Number: [id number] Reading MD: Lakesha Aguayo; Measurements; Intervals [place]; Rate: 84 P: 70; TN: 193 QRS: 54; QRSD: 102 T: 73; QT: 349; QTc: 414; Interpretive Statements; SINUS RHYTHM; NSTTW ABNORMALITY; NO PRIOR FOR COMPARISON; Electronically Signed On 06-16-2016 8:32:53 EST by Lakesha Aguayo; Radiology Order: portable chest Test: portable chest REASON FOR EXAMINATION: Chest Pain; Clinical: Chest pain .; ; Comparison: 03/30/2016 .; ; Findings:; The mediastinum and cardiac silhouette are stable and within normal limits for; portable technique. The lung seals are clear without acute consolidation,; effusion, or pneumothorax. Skeletal structures are intact.; ; Impression:; Normal portable chest x-ray; ; ; Signed by; Stanley Tatum MD 06/15/2016 12:51 P; Radiology Order: CT Chest Angio R/O PE Test: CT Chest Angio R/O PE REASON FOR EXAMINATION: elevated d-dimer chest pain sob; Clinical: Acute chest pain with elevated D-dimer levels.; ; Technique: Axial contrast enhanced images from the thoracic inlet to the upper; abdomen using 100 ml Isovue 370 intravenous contrast material with coronal and; sagittal re-formations.; ; Findings: Satisfactory enhancement of the pulmonary vasculature is achieved and; no filling defects are identified to suggest pulmonary embolus. Thoracic aorta; is normal caliber without aneurysm or dissection. Heart and pericardium are; normal. Lung seals demonstrate chronic emphysematous changes with; bronchiectasis and right lower lobe scarring. No acute consolidation, pleural; effusion or pneumothorax. No significant adenopathy. Musculoskeletal structures; demonstrate age-related changes without focal osseous abnormality.; ; Impression:; No evidence for pulmonary embolus.; Chronic emphysematous changes with bronchiectasis and right lower lobe scarring.; No acute pleuroparenchymal or mediastinal process.; ; ; Signed by; Stanley Tatum MD 06/15/2016 02:12 P; Radiology Order: GALLBLADDER US Test: GALLBLADDER US REASON FOR EXAMINATION: right inguinal fullness. nausea; ; Clinical history: nausea, weight loss.; Findings: The pancreas is limited in visualization secondary to overlying bowel gas, but appears benita; sly unremarkable. The liver demonstrates uniform echotexture and echogenicity, with no mass lesions.; The gallbladder is unremarkable. The common bile duct measures 6 mm and is within normal limits. The; right kidney measures 11.5 x 7.2 x 5.3 cm and is unremarkable. There is no ascites.; Impression: Unremarkable ultrasound examination of the right upper quadrant.; ; Radiology Order: Pelvis, limited US Test: Pelvis, limited US REASON FOR EXAMINATION: RT INGUINAL FULLNESS; ; Clinical history: right inguinal fullness.; Findings: Real-time ultrasound imaging of the right inguinal region was performed. There is no eviden; ce of a hernia. Normal heterogeneous fibroglandular tissue is noted. No focal defined mass or cystic; lesion is appreciated. No evidence of calcifications are appreciated. No other gross abnormalities.; Impression: Unremarkable ultrasound examination of the right inguinal region. No evidence of a hernia; .; ; Outcome: 16:07 Decision to Hospitalize by Provider. sd1 18:55 CT Study completed. [facility] 06/16 10:55 Patient left the ED. hs1 Signatures: Dispatcher [employer] EDMS Lakesha Aguayo MD MD sd1 Manoj OrourkeRN RN ms2 Floyd ChandlerRN RN pazk Barbara Recinos, RN ERICA [facility] Valdez Morales RN RN mlb1 Sarita PringleRN RN ck1 Viraj Bernard MD MD br1 Priti Clayton RN RN hs1 Brenda AcostaRN RN dsf Mayra Kumar RN RN sls1 Deepak Morgan jml1 Concepcion UrrutiaRN RN ms18 Mohamud Porter, COUNTER CONTROL OPERATOR COUNTER CONTROL OPERATOR jrd Miguel, Amy, COUNTER CONTROL OPERATOR COUNTER CONTROL OPERATOR rs6 Shelly Zuniga,RN RN js15 Rosalinda Mao Jennalee jp5 Eleanor Urrutia,RN RN sonja2 Dania Elizabeth2 Corrections: (The following items were deleted from the chart) 06/15 15:51 15:47 LIVER PROFILE+LAB sent. ck1 EDMS 15:51 15:47 LIPASE+LAB sent. ck1 EDMS 21:36 21:15 Urine 300, (Voided), Output Total 300. ms2 ms2 MTDD
--- NOTE | 2016-06-16 11:35 | HPE ---
DATE OF ADMISSION: 06/15/2016 COPIED AND PASTED ADDENDUM TO SIGNED HISTORY.... ADDENDUM: EKG dated 06/15/2016, 1225 hours, sinus rhythm, ventricular rate of 84. Normal EKG. No acute ST-T changes. No T wave inversions or ST depressions. MTDD
--- NOTE | 2016-06-16 13:55 | ECGEPIP ---
Stationary ECG Study [facility] Test Date: 2016-06-16 Pat Name: MARGARITO ARAUJO Department: Room: [place] [address] Gender: M Notary Public: benoit : 1945 Requested By: SASKIA CAMEJO Order Number: [id number] Reading MD: Aren Suarez Measurements Intervals [place] Rate: 59 P: 58 WA: 211 QRS: 35 QRSD: 109 T: 68 QT: 408 QTc: 406 Interpretive Statements SINUS BRADYCARDIA WITH FIRST DEGREE AV BLOCK Decreased heart rate and longer WA interval compared with 06/15/2016. Electronically Signed On 06-16-2016 13:55:12 EST by Aren Suarez
[2016-06-16] MEDS ORDERED: RANI1TAB6 PO (15:18)
[2016-06-16] MEDS ORDERED: SUCR1TA PO (15:18)
--- NOTE | 2016-06-16 15:23 | DS.PDOC ---
Discharge Summary General Date of Admission Jun 15, 2016 at 20:31 Date of Discharge 06/16/16 Primary Care Physician: Mohamud Holly MD Attending Physician: LIBERTY RAJAN MD Specialist/Consultants Involve: SASKIA CAMEJO MD Discharge Summary PROCEDURES PERFORMED DURING STAY: [None.] COMPLICATIONS/CHIEF COMPLAINT: Chest Pain ADMISSION DIAGNOSES: 1. . 2. . 3. . DISCHARGE DIAGNOSES: 1. . 2. . 3. . HISTORY OF PRESENT ILLNESS: Patient is a [AGE]-year-old [GENDER] with HOSPITAL COURSE: Patient was admitted for DISCHARGE MEDICATIONS: Please see below. ALLERGIES: Please see below. PHYSICAL EXAMINATION ON DISCHARGE: VITAL SIGNS: Please see below. GENERAL: HEENT: NECK: CARDIOVASCULAR EXAMINATION: RESPIRATORY EXAMINATION: ABDOMINAL EXAMINATION: EXTREMITIES: SKIN: NEUROLOGICAL EXAMINATION: PSYCHIATRIC EXAMINATION: LABORATORY DATA: Please see below. IMAGING: VTE Prophylaxis ordered?: DISCHARGE CONDITION: [Stable]. DISPOSITION: . ACTIVITY: . DIET: . ITEMS TO FOLLOWUP ON OUTPATIENT: 1. Pt needs followup to [place] for possible cath or repeat stress test 2. Pt needs urgent GI referral for early satiety, 30lb wt loss, nausea, and pain 3. DISCHARGE PLAN AND INSTRUCTIONS: 1. . 2. . 3. . TIME SPENT ON DISCHARGE: Greater than minutes. Vital Signs/I&Os Vital Signs Date Time Temp Pulse Resp B/P Pulse Ox O2 Delivery O2 Flow Rate FiO2 06/16/16 12:00 96.6 68 16 123/66 96 Room Air I&O- Last 24 Hours up to 6 AM 06/16/16 06:00 Intake Total 220 ml Output Total 700 ml Balance -480 ml Laboratory Data Labs 24H Laboratory Tests 2 06/16/16 00:17: Creatine Kinase MB 1.4, Creatine Kinase MB Relative Index 3.58, Total Creatine Kinase 39, Troponin I 0.02 06/16/16 06:51: Creatine Kinase MB 1.3, Creatine Kinase MB Relative Index 3.61, Total Creatine Kinase 36L, Troponin I 0.02, Anion Gap 6L, White Blood Count 3.4L, Red Blood Count 3.87L, Hemoglobin 10.7L, Hematocrit 33.2L, Mean Corpuscular Volume 85.8, Mean Corpuscular Hemoglobin 27.6, Mean Corpuscular Hemoglobin Concent 32.2, Red Cell Distribution Width 15.0H, Platelet Count 275, Neutrophils (%) (Auto) 76.0H , Lymphocytes (%) (Auto) 16.0L, Monocytes (%) (Auto) 4.9, Eosinophils (%) (Auto ) 1.8, Basophils (%) (Auto) 0.2, Neutrophils # (Auto) 2.6, Lymphocytes # (Auto) 0.6L, Monocytes # (Auto) 0.2, Eosinophils # (Auto) 0.1, Basophils # (Auto) 0.0, Blood Urea Nitrogen 9, Creatinine 0.72, Sodium Level 140, Potassium Level 3.8, Chloride Level 108H, Carbon Dioxide Level 26, Calcium Level 8.2L, Glomerular Filtration Rate > 60.0, Large Unclassified Cells # 0.0, Large Unclassified Cells % 1.1, Uric Acid 6.1 06/16/16 14:49: CBC/BMP Laboratory Tests 06/16/16 06:51 Calcium Level 8.2 L, Total Creatine Kinase 36 L, Red Blood Count 3.87 L, Mean Corpuscular Volume 85.8, Mean Corpuscular Hemoglobin 27.6, Mean Corpuscular Hemoglobin Concent 32.2, Red Cell Distribution Width 15.0 H, Neutrophils (%) ( Auto) 76.0 H, Lymphocytes (%) (Auto) 16.0 L, Monocytes (%) (Auto) 4.9, Eosinophils (%) (Auto) 1.8, Basophils (%) (Auto) 0.2, Neutrophils # (Auto) 2.6, Lymphocytes # (Auto) 0.6 L, Monocytes # (Auto) 0.2, Eosinophils # (Auto) 0.1, Basophils # (Auto) 0.0 Medications Scheduled (Rosuvastatin Calcium) 10 Mg Tab 10 MG PO QHS ([Carbo G]) 1 CAP PO TID (Probiotic) 1 Tab Tab 1 TAB PO BID ([Tuna Geronimo 3 Oil]) 1 CAP PO TID ([Flexoplex]) 1 TAB PO QID Aspirin (Aspirin 81) 81 Mg Tab 81 MG PO DAILY Folic Acid (Folic Acid) 1 Mg Tab 1 MG PO DAILY Hydroxychloroquine Sulfate (Hydroxychloroquine Sulfat) 200 Mg Tab 200 MG PO BID Methotrexate (Methotrexate) 2.5 Mg Tab 20 MG PO QWEEK 10MG BID ON SATURDAYS Ranitidine HCl (Ranitidine [address]) 150 Mg Tab 1 TAB PO BID Gastritis Sucralfate (Carafate) 1 Gm Tab 1 GM PO ACHS Scheduled PRN Nitroglycerin (Nitrostat) 0.4 Mg Subl 0.4 MG SL NITRO PRN PRN CHEST PAIN Allergies Coded Allergies: Nifedipine (Unverified Adverse Reaction, Mild, "SQUIRRELY" "GOOFY FEELING ", 06/15/16) LIBERTY RAJAN MD Jun 16, 2016 15:23
[2016-06-16] MEDS ORDERED: FAMOTIDINE 20 MG TAB PO SCH (21:00)
[2016-06-16] MEDS ORDERED: ROSUVASTATIN 10 MG TAB (CRESTOR) PO SCH (21:00)
--- NOTE | 2016-06-18 11:56 | EDDOCDS ---
Physician Documentation [facility] Name: Nic Mahoney Age: 70 yrs Sex: Male : 1945 Arrival Date: 06/15/2016 Time: 12:11 Bed Admit Hold Private MD: Disposition: 06/15/16 16:07 Hospitalization ordered by Erika Aguirre for Inpatient Admission. Preliminary diagnosis is Chest pain, unspecified. - Bed requested for [facility] (Formerly [facility]). - Status is Inpatient Admission. hs1 - Condition is Stable. - Problem is new. - Symptoms are resolved. Historical: - Allergies: Procardia ("squirrely" goofy feeling); - Home Meds: 1. rosuvastatin 10 mg oral tab 1 tab once daily (Last dose: 06/14/2016) 2. Nitrostat 0.4 mg SL subl (Last dose: 06/15/2016 11:30) 3. hydroxychloroquine 200 mg oral tab 2 times per day (Last dose: 06/14/2016) 4. famotidine 20 mg Oral tab 1 tab once daily (Last dose: 06/14/2016) 5. methotrexate sodium 2.5 mg Oral tab 4 tabs every 12 hours on saturdays 6. folic acid 1 mg Oral tab 1 tab once daily (Last dose: 06/14/2016) - PMHx: Rheumatoid Arthritis; GERD; Hypercholesterolemia; prostates cancer; hernia; - PSHx: 5 cardiac stents; Prostatectomy; Hernia repair; - Social history: Smoking status: Patient states former smoker of tobacco. No barriers to communication noted, The patient speaks fluent [place], Speaks appropriately for age. - Family history: Not pertinent. - : The pt / caregiver states he / she is not on anticoagulants. Home medication list is obtained from the patient. - Exposure Risk Screening:: None identified. Vital Signs: 06/15 12:01 BP 163 / 77 (auto/); mlb1 12:01 Pulse 82 MON; Pulse Ox 93% ; mlb1 12:13 BP 113 / 59; Pulse 95; Resp 20; Temp 97.0(O); Weight 77.11 kg / 170 lbs (R); Height 5 lr2 ft. 11 in. (180.34 cm); Pain 7/10; 12:30 BP 108 / 62 (auto/); mlb1 12:32 Pulse 86 MON; Pulse Ox 91% ; mlb1 13:00 Pulse 80 MON; Pulse Ox 100% ; mlb1 13:00 BP 103 / 57 (auto/); mlb1 13:30 BP 105 / 59 (auto/); mlb1 13:30 Pulse 76 MON; Pulse Ox 100% ; mlb1 14:00 BP 114 / 61 (auto/); mlb1 14:00 Pulse 78 MON; Pulse Ox 96% ; mlb1 14:30 BP 102 / 62 (auto/); mlb1 14:30 Pulse 78 MON; Pulse Ox 100% ; mlb1 15:00 BP 106 / 62 (auto/); mlb1 15:00 Pulse 78 MON; Pulse Ox 98% ; mlb1 15:30 BP 107 / 65 (auto/); mlb1 15:30 Pulse 76 MON; Pulse Ox 99% ; mlb1 16:01 BP 114 / 67 (auto/); mlb1 16:01 Pulse 76 MON; Pulse Ox 100% ; mlb1 16:31 BP 117 / 61 (auto/); mlb1 16:31 Pulse 76 MON; Pulse Ox 96% ; mlb1 17:01 BP 116 / 64 (auto/); mlb1 17:01 Pulse 76 MON; Pulse Ox 97% ; mlb1 17:31 BP 110 / 63 (auto/); mlb1 17:31 Pulse 74 MON; Pulse Ox 99% ; mlb1 18:01 BP 127 / 70 (auto/); mlb1 18:01 Pulse 74 MON; Pulse Ox 99% ; mlb1 18:31 BP 149 / 76 (auto/); mlb1 18:31 Pulse 84 MON; Pulse Ox 99% ; mlb1 19:31 BP 117 / 63 (auto/); js15 19:31 Pulse 94 MON; Pulse Ox 98% ; js15 20:01 BP 98 / 72 (auto/); js15 20:02 Pulse 76 MON; Pulse Ox 97% ; js15 20:31 BP 129 / 61 (auto/); js15 20:31 Pulse 74 MON; Pulse Ox 97% ; js15 21:01 BP 122 / 70 (auto/); js15 21:01 Pulse 70 MON; Pulse Ox 97% ; js15 12:13 Body Mass Index 23.71 (77.11 kg, 180.34 cm) lr2 MDM: 12:15 ECG WITH READING ER PHYS+CARDIAG ordered. EDMS 12:26 Truck Operator/Pulse Ox/q 30 min VS ordered. sd1 12:26 IV Saline Lock ordered. sd1 12:26 Rhythm Strip to chart ordered. sd1 12:26 Undress patient appropriately for examination ordered. sd1 12:26 Basic Metabolic Profile Ordered. EDMS 12:26 CBC with Diff Ordered. EDMS 12:26 Cardiac Injury Profile Ordered. EDMS 12:26 Troponin Ordered. EDMS 12:28 portable chest Ordered. EDMS 13:04 CBC with Diff Reviewed. sd1 13:06 D-Dimer Quant Ordered. EDMS 13:28 D-Dimer Quant Reviewed. sd1 13:28 Basic Metabolic Profile Reviewed. sd1 13:28 Cardiac Injury Profile Reviewed. sd1 13:28 Troponin Reviewed. sd1 13:28 portable chest Reviewed. sd1 13:32 NS 0.9% 1000 ml IV at 100 mL/hr continuous ordered. sd1 13:32 CT Chest Angio R/O PE Ordered. EDMS 13:46 Financial registration complete. jp5 14:04 [facility] Payment Agreement was scanned into [employer] and attached to record. jp5 15:40 GI Cocktail - (Alum-Mag Hydroxide-Simeth 30 ml, Lidocaine 10 ml, Hyoscyamine 10 ml) PO sd1 once; Pre-mixed 50mL unit dose ordered. 15:42 CT Chest Angio R/O PE Reviewed. sd1 15:44 BED REQUEST+ADM ordered. EDMS 16:47 Sucralfate 1 grams PO once ordered. sd1 16:47 LIVER PROFILE Reviewed. sd1 16:47 Basic Metabolic Profile Reviewed. sd1 16:47 Cardiac Injury Profile Reviewed. sd1 16:47 Troponin Reviewed. sd1 16:47 LIPASE Reviewed. sd1 17:50 REGULAR+DIET ordered. EDMS 20:33 Admission / Observation Status ordered. EDMS 20:34 NO ADDED SALT DIET ordered. EDMS 20:35 CARDIAC MARKER PANEL Ordered. EDMS 20:35 BASIC METABOLIC PROFILE Ordered. EDMS 20:35 CBC WITH DIFFERENTIAL Ordered. EDMS 20:35 CARDIAC MARKER PANEL Ordered. EDMS 23:14 GALLBLADDER US Ordered. EDMS 23:16 Pelvis, limited US Ordered. EDMS 06/16 02:27 CARDIAC MARKER PANEL Ordered. EDMS 08:28 ELECTROCARDIOGRAM ADULT ordered. EDMS 08:33 URIC ACID Ordered. EDMS 06/18 08:12 T-Sheet-- Draft Copy was scanned into [employer] and attached to record. 08:12 ECG/EKG was scanned into [employer] and attached to record. 08:13 Radiology Report was scanned into [employer] and attached to record. lg Administered Medications: 06/15 13:35 Drug: NS 0.9% 1000 ml [sodium chloride 0.9 % intravenous solution] Route: IV; Rate: 100 ms2 mL/hr; Site: right antecubital; 15:47 Drug: GI Cocktail - (Alum-Mag Hydroxide-Simeth Suspension 225 mg-200 mg-25 mg/5 mL 30 ck1 ml, Lidocaine Liquid 2 % 10 ml, Hyoscyamine Liquid 10 ml) Route: PO; 17:15 Drug: Sucralfate 1 grams [sucralfate 1 gram tablet (1 tabs)] Route: PO; mlb1 Signatures: Dispatcher [employer] Lakesha Hopper MD MD sd1 Barbara Recinos, RN RN srm Brodie Shane, Reg Reg Valdez Morales RN RN mlb1 Viraj Bernard MD MD br1 Priti Clayton RN RN hs1 Audrey Barry RN RN sls2 Austin Briones jp5 Manoj Orourke RN ms2 Sarita Pringle RN ck1 The chart was reviewed and I authenticate all verbal orders and agree with the evaluation and treatment provided.Corrections: (The following items were deleted from the chart) 15:51 15:44 LIPASE+LAB ordered. EDMS EDMS 15:51 15:44 LIVER PROFILE+LAB ordered. EDMS EDMS 23:14 23:04 ABD COMPLETE US ordered. EDMS EDMS 06/16 02:26 06/15 20:35 CARDIAC MARKER PANEL ordered. EDMS EDMS 06/16 08:33 08:27 URIC ACID ordered. EDMS EDMS 09:49 06/15 20:34 ELECTROCARDIOGRAM ADULT ordered. EDGA EDMS Attachments: 14:04 [facility] Payment Agreement jp5 06/18 08:12 T-Sheet-- Draft Copy 08:12 ECG/EKG Chart Complete MTDD
--- NOTE | 2016-06-18 11:56 | EDDOCDS ---
Nurse's Notes [facility] Name: Margarito Mahoney Age: 70 yrs Sex: Male : 1945 Arrival Date: 06/15/2016 Time: 12:11 Bed Admit Hold Private MD: Diagnosis: Chest pain, unspecified Presentation: 06/15 12:31 Presenting complaint: Patient states: chest pain started between 5-6 am/ increased- srm took 2 nitro at 1115 and 1130. nitro helped the pain. feeling weak nausea, lightheadenss for a few days. pain radiates to under left arm. Aspirin was not taken prior to arrival. Adult Sepsis Screening: The patient does not have new or worsening altered mentation. Patient's respiratory rate is less than 22. Systolic blood pressure is greater than 100. Patient has a qSOFA score of 0- Negative Sepsis Screen. Suicide/Homicide risk assessment- the patient denies having any suicidal and/or homicidal ideations and does not present with any other emotional, behavioral or mental health complaints. Status: Patient is not a guest service representative or dependent. Transition of care: patient was not received from another setting of care. 12:31 Acuity: CODY Level 2 srm 12:31 Method Of Arrival: Walkin/Carried/Asstd srm 12:41 Presenting complaint: Patient states: chest hurts with deep[ breathing. also hx of 30 srm lb weight loss since november and pt states lower legs are swollen. 12:44 Presenting complaint: Patient states: epigastric pain for probably 3 weeks but worsened srm yesterday. Triage Assessment: 12:39 General: Appears in no apparent distress, Behavior is appropriate for age, cooperative. srm Pain: Pain currently is 6 out of 10 on a pain scale. Cardiovascular: Chest pain is described as vague, radiates to left under arm left episodes are continuous began 6.5-7 hours. Historical: - Allergies: Procardia ("squirrely" goofy feeling); - Home Meds: 1. rosuvastatin 10 mg oral tab 1 tab once daily (Last dose: 06/14/2016) 2. Nitrostat 0.4 mg SL subl (Last dose: 06/15/2016 11:30) 3. hydroxychloroquine 200 mg oral tab 2 times per day (Last dose: 06/14/2016) 4. famotidine 20 mg Oral tab 1 tab once daily (Last dose: 06/14/2016) 5. methotrexate sodium 2.5 mg Oral tab 4 tabs every 12 hours on saturdays 6. folic acid 1 mg Oral tab 1 tab once daily (Last dose: 06/14/2016) - PMHx: Rheumatoid Arthritis; GERD; Hypercholesterolemia; prostates cancer; hernia; - PSHx: 5 cardiac stents; Prostatectomy; Hernia repair; - Social history: Smoking status: Patient states former smoker of tobacco. No barriers to communication noted, The patient speaks fluent Cypriot, Speaks appropriately for age. - Family history: Not pertinent. - : The pt / caregiver states he / she is not on anticoagulants. Home medication list is obtained from the patient. - Exposure Risk Screening:: None identified. Screenin:53 Screening information is obtained from the patient. Fall risk: No risks identified. mlb1 Assistance ADL's: requires no assistance with activities of daily living. Abuse/DV Screen: The patient / caregiver reports he/she is: not in a situation that causes fear, pain or injury. Nutritional screening: No deficits noted. Advance Directives: Currently, there is no health care proxy. home support is adequate. Assessment: 13:35 General: Appears in no apparent distress, comfortable, daughter with pt. Behavior is ms2 cooperative. Neurological: Level of Consciousness is awake, alert, obeys commands. Cardiovascular: Rhythm is sinus rhythm. Respiratory: Airway is patent Respiratory effort is even, unlabored, Respiratory pattern is regular, symmetrical. Derm: Skin is pink, warm & dry. Musculoskeletal: Range of motion intact in all extremities. 14:21 General: Appears in no apparent distress, comfortable, Behavior is anxious, mlb1 cooperative. Pain: Location: mid-sternal area Pain currently is 4 out of 10 on a pain scale. Neurological: No deficits noted. Respiratory: No deficits noted. 15:47 General: Appears in no apparent distress, comfortable, Behavior is appropriate for age, ck1 cooperative. Pain: Location: epigastric area Pain currently is 4 out of 10 on a pain scale. Neurological: Level of Consciousness is awake, alert, obeys commands. Respiratory: Respiratory effort is even, unlabored, Respiratory pattern is regular, symmetrical. GI: Reports epigastric pain. Derm: Skin is pink, warm & dry. 16:21 General: Appears in no apparent distress, comfortable, Behavior is appropriate for age, mlb1 cooperative. Pain: Location: mid-sternal area Pain currently is 2 out of 10 on a pain scale. Neurological: No deficits noted. 17:31 General: Appears in no apparent distress, comfortable, Behavior is appropriate for age, mlb1 cooperative. Pain: Location: mid-sternal area Pain currently is 2 out of 10 on a pain scale. Neurological: No deficits noted. Cardiovascular: Rhythm is sinus rhythm No ectopy. 18:53 General: Appears in no apparent distress, comfortable, Behavior is appropriate for age, mlb1 cooperative. Pain: Location: mid-sternal area Pain currently is 1 out of 10 on a pain scale. Neurological: No deficits noted. Respiratory: No deficits noted. 19:15 General: Appears in no apparent distress, comfortable, Behavior is appropriate for age, js15 cooperative, assisted pt to bathroom and back to bed, pt walked independently without shortness of breath or dizziness. Neurological: Level of Consciousness is awake, alert, obeys commands, Oriented to person, place, time. Neurological: Moves all extremities. Full function Gait is steady, Speech is normal, Facial symmetry appears normal. Cardiovascular: Rhythm is sinus rhythm. Respiratory: Airway is patent Respiratory effort is even, unlabored, Respiratory pattern is regular, symmetrical. Derm: Skin is pink, warm & dry. Decubitus located on sacrum approximately small, pea sized circular open wound noted at bottom of sacrum, top of buttocks; barrier ointment and dressing applied. 20:45 Reassessment: Patient appears in no apparent distress at this time. Admitting physician america at bedside; will continue to monitor. 06/16 07:43 General: monitor is sr with 1st degree block with rate of 65. jmk Vital Signs: 06/15 12:01 BP 163 / 77 (auto/); mlb1 12:01 Pulse 82 MON; Pulse Ox 93% ; mlb1 12:13 BP 113 / 59; Pulse 95; Resp 20; Temp 97.0(O); Weight 77.11 kg (R); Height 5 ft. 11 in. lr2 (180.34 cm); Pain 11/01; 12:30 BP 108 / 62 (auto/); mlb1 12:32 Pulse 86 MON; Pulse Ox 91% ; mlb1 13:00 Pulse 80 MON; Pulse Ox 100% ; mlb1 13:00 BP 103 / 57 (auto/); mlb1 13:30 BP 105 / 59 (auto/); mlb1 13:30 Pulse 76 MON; Pulse Ox 100% ; mlb1 14:00 BP 114 / 61 (auto/); mlb1 14:00 Pulse 78 MON; Pulse Ox 96% ; mlb1 14:30 BP 102 / 62 (auto/); mlb1 14:30 Pulse 78 MON; Pulse Ox 100% ; mlb1 15:00 BP 106 / 62 (auto/); mlb1 15:00 Pulse 78 MON; Pulse Ox 98% ; mlb1 15:30 BP 107 / 65 (auto/); mlb1 15:30 Pulse 76 MON; Pulse Ox 99% ; mlb1 16:01 BP 114 / 67 (auto/); mlb1 16:01 Pulse 76 MON; Pulse Ox 100% ; mlb1 16:31 BP 117 / 61 (auto/); mlb1 16:31 Pulse 76 MON; Pulse Ox 96% ; mlb1 17:01 BP 116 / 64 (auto/); mlb1 17:01 Pulse 76 MON; Pulse Ox 97% ; mlb1 17:31 BP 110 / 63 (auto/); mlb1 17:31 Pulse 74 MON; Pulse Ox 99% ; mlb1 18:01 BP 127 / 70 (auto/); mlb1 18:01 Pulse 74 MON; Pulse Ox 99% ; mlb1 18:31 BP 149 / 76 (auto/); mlb1 18:31 Pulse 84 MON; Pulse Ox 99% ; mlb1 19:31 BP 117 / 63 (auto/); js15 19:31 Pulse 94 MON; Pulse Ox 98% ; js15 20:01 BP 98 / 72 (auto/); js15 20:02 Pulse 76 MON; Pulse Ox 97% ; js15 20:31 BP 129 / 61 (auto/); js15 20:31 Pulse 74 MON; Pulse Ox 97% ; js15 21:01 BP 122 / 70 (auto/); js15 21:01 Pulse 70 MON; Pulse Ox 97% ; js15 12:13 Body Mass Index 23.71 (77.11 kg, 180.34 cm) lr2 Vitals: 12:11 RN notified that patient meets Red Flag criteria. lr2 12:16 Log In Time: June 15, 2016 at 12:11. lr2 ED Course: 12:12 Patient visited by Dania Elizabeth. lr2 12:12 Patient moved to Waiting lr2 12:16 Patient moved to Pre RCE lr2 12:20 Patient moved to I6 / 28 ms18 12:27 Eleanor Urrutia,RN is Primary Nurse. ms18 12:27 Patient moved to 17 ms18 12:33 Triage Initiated srm 12:35 Lakesha Aguayo MD is Attending Physician. sd1 12:35 Patient visited by Lakesha Aguayo MD. sd1 12:40 Basic Metabolic Profile Sent. dsf 12:40 CBC with Diff Sent. dsf 12:41 Cardiac Injury Profile Sent. dsf 12:41 Troponin Sent. dsf 12:41 Inserted saline lock: 20 gauge in right antecubital area The patient tolerated the dsf procedure well. 12:42 The patient / caregiver is instructed regarding the plan of care and ED course. Cardiac srm monitor on. Pulse ox on. NIBP on. 12:42 EKG done. (by ED staff). Reviewed by Lakesha Aguayo MD at 1225. srm 12:45 Portable x-ray done. srm 13:11 portable chest Returned. EDMS 13:39 Patient visited by Manoj Orourke RN. ms2 13:40 The patient / caregiver is instructed regarding the plan of care and ED course. Cardiac ms2 monitor on. Pulse ox on. NIBP on. Warm blanket given. 13:41 IV is patent, is intact, is free of redness or swelling. solution is infusing as ms2 ordered. 14:04 [facility] Payment Agreement was scanned into [employer] and attached to record. jp5 14:21 Patient visited by Valdez Morales RN. mlb1 14:48 CT Chest Angio R/O PE Returned. EDMS 15:35 Patient visited by Deepak Morgan. jml1 16:07 Jameson Enrique MD is Hospitalizing Provider. sd1 16:22 Patient visited by Valdez Morales, ERICA. mlb1 17:31 Patient visited by Valdez Morales, ERICA. mlb1 18:54 No procedures done that require assistance. mlb1 18:55 Patient visited by Valdez Morales, ERICA. mlb1 18:59 Primary Nurse role handed off by Eleanor Urrutia RN kas2 20:38 Hospitalizing Provider role handed off by Jameson Enrique MD br1 20:38 Erika Aguirre is Hospitalizing Provider. br1 21:25 Patient moved to 19 sls1 21:39 Patient visited by Amy Rivera, EDDIE. rs6 23:14 Patient moved to Ultrasound en 06/16 00:09 Patient moved to 19 en 00:35 GALLBLADDER US Returned. EDMS 00:35 Pelvis, limited US Returned. EDMS 01:41 Patient moved to Admit Hold sls1 07:58 EKG done. jrd 08:42 EKG-ADULT Returned. EDMS 06/18 08:12 T-Sheet-- Draft Copy was scanned into [employer] and attached to record. lg 08:12 ECG/EKG was scanned into [employer] and attached to record. lg 08:13 Radiology Report was scanned into [employer] and attached to record. lg Administered Medications: 06/15 13:35 Drug: NS 0.9% 1000 ml [sodium chloride 0.9 % intravenous solution] Route: IV; Rate: 100 ms2 mL/hr; Site: right antecubital; 15:47 Drug: GI Cocktail - (Alum-Mag Hydroxide-Simeth Suspension 225 mg-200 mg-25 mg/5 mL 30 ck1 ml, Lidocaine Liquid 2 % 10 ml, Hyoscyamine Liquid 10 ml) Route: PO; 17:15 Drug: Sucralfate 1 grams [sucralfate 1 gram tablet (1 tabs)] Route: PO; mlb1 Order Results: Lab Order: Basic Metabolic Profile; SPEC'M 06/15/16 12:38 Test: GLUCOSE, FASTING; Value: 99; Range: 83-110; Units: MG/DL; Status: F Test: BLOOD UREA NITROGEN; Value: 14; Range: 7-18; Units: MG/DL; Status: F Test: CREATININE FOR GFR; Value: 0.93; Range: 0.70-1.30; Units: MG/DL; Status: F Test: GLOMERULAR FILTRATION RATE; Value: > 60.0; Range: >42; Status: F Test: SODIUM LEVEL; Value: 140; Range: 136-145; Units: MEQ/L; Status: F Test: POTASSIUM SERUM; Value: 3.9; Range: 3.5-5.1; Units: MEQ/L; Status: F Test: CHLORIDE LEVEL; Value: 104; Range: 98-107; Units: MEQ/L; Status: F Test: CARBON DIOXIDE LEVEL; Value: 24; Range: 21-32; Units: MEQ/L; Status: F Test: ANION GAP; Value: 12; Range: 8-16; Units: MEQ/L; Status: F Test: CALCIUM LEVEL; Value: 9.1; Range: 8.8-10.2; Units: MG/DL; Status: F Test Note: ; Units are mL/min/1.73 m2 Chronic Kidney Disease Staging per NKF: Stage I & II GFR >=60 Normal to Mildly Decreased Stage III GFR 30-59 Moderately Decreased Stage IV GFR 15-29 Severely Decreased Stage V GFR <15 Very Little GFR Left ESRD GFR <15 on BODS DEVELOPER Lab Order: CBC with Diff; SPEC'M 06/15/16 12:38 Test: WHITE BLOOD COUNT; Value: 4.2; Range: 4.0-10.0; Units: K/mm3; Status: F Test: RED BLOOD COUNT; Value: 4.48; Range: 4.30-6.10; Units: M/mm3; Status: F Test: HEMOGLOBIN; Value: 12.5; Range: 14.0-18.0; Abnormal: Below low normal; Units: g/dl; Status: F Test: HEMATOCRIT; Value: 38.4; Range: 42.0-52.0; Abnormal: Below low normal; Units: %; Status: F Test: MEAN CORPUSCULAR VOLUME; Value: 85.8; Range: 80.0-96.0; Units: fl; Status: F Test: MEAN CORPUSCULAR HEMOGLOBIN; Value: 27.9; Range: 27.0-33.0; Units: pg; Status: F Test: MEAN CORPUSCULAR HGB CONC; Value: 32.5; Range: 32.0-36.5; Units: g/dl; Status: F Test: RED CELL DISTRIBUTION WIDTH; Value: 15.0; Range: 11.5-14.5; Abnormal: Above high normal; Units: %; Status: F Test: PLATELET COUNT, AUTOMATED; Value: 327; Range: 150-450; Units: k/mm3; Status: F Test: NEUTROPHILS %; Value: 76.3; Range: 36.0-66.0; Abnormal: Above high normal; Units: %; Status: F Test: LYMPH %; Value: 16.8; Range: 24.0-44.0; Abnormal: Below low normal; Units: %; Status: F Test: MONO %; Value: 4.9; Range: 0.0-5.0; Units: %; Status: F Test: EOS %; Value: 0.5; Range: 0.0-3.0; Units: %; Status: F Test: BASO %; Value: 0.2; Range: 0.0-1.0; Units: %; Status: F Test: LARGE UNSTAINED CELL %; Value: 1.2; Range: 0.0-4.0; Units: %; Status: F Test: NEUTROPHILS #; Value: 3.2; Range: 1.8-7.7; Units: K/mm3; Status: F Test: LYMPH #; Value: 0.8; Range: 1.5-4.5; Abnormal: Below low normal; Units: K/mm3; Status: F Test: MONO #; Value: 0.2; Range: 0.0-0.8; Units: K/mm3; Status: F Test: EOS #; Value: 0.0; Range: 0.0-0.50; Units: K/mm3; Status: F Test: BASO #; Value: 0.0; Range: 0.0-0.2; Units: K/mm3; Status: F Test: LARGE UNSTAINED CELL #; Value: 0.1; Range: 0.0-0.4; Units: K/mm3; Status: F Lab Order: Cardiac Injury Profile; SPEC'06/15/16 12:38 Test: CPK CREATINE PHOSPHOKINASE; Value: 59; Range: 39-308; Units: U/L; Status: F Test: CK-MB VALUE MASS; Value: 1.7; Range: 0.0-3.6; Units: NG/ML; Status: F Test: MB/CK RELATIVE INDEX; Value: 2.88; Range: < OR =4; Status: F Test Note: ; DIAGNOSIS CRITERIA MMB ng/ml Relative Index (RI) NON-AMI < or = 5 N/A [place]ONE > 5 < or = 4 AMI > 5 > 4 Lab Order: Troponin; SPEC'06/15/16 12:38 Test: TROPONIN I; Value: < 0.02; Range: < 0.10; Units: NG/ML; Status: F Test Note: ; Troponin I Reference Interval for Siemens [place] LOCI: 99th Percentile= 0.00-0.045 ng/ml Risk Stratification: <= 0.10 ng/ml Decreased Risk for Adverse Clinical Events. 0.10-1.50 ng/ml Increased Risk for Adverse Clinical Events. Evaluation of additional criterion and/or repeat testing in 2-6 hours is suggested to rule out myocardial damage. >= 1.50 ng/ml Indicative of Myocardial Injury. Lab Order: D-Dimer Quant; [facility]06/15/16 12:38 Test: D-DIMER QUANT; Value: 2408.1; Range: <500; Abnormal: Above high normal; Units: ng/ml; Status: F Lab Order: LIVER PROFILE; [facility] 06/15/16 12:38 Test: AST/SGOT; Value: 23; Range: 15-37; Units: U/L; Status: F Test: ALT/SGPT; Value: 21; Range: 12-78; Units: U/L; Status: F Test: ALKALINE PHOSPHATASE; Value: 78; Range: 45-117; Units: U/L; Status: F Test: BILIRUBIN,TOTAL; Value: 0.2; Range: 0.2-1.0; Units: MG/DL; Status: F Test: BILIRUBIN,DIRECT; Value: < 0.1; Range: 0.0-0.2; Units: MG/DL; Status: F Test: TOTAL PROTEIN; Value: 5.9; Range: 6.4-8.2; Abnormal: Below low normal; Units: GM/DL; Status: F Test: ALBUMIN; Value: 3.0; Range: 3.2-5.2; Abnormal: Below low normal; Units: GM/DL; Status: F Test: ALBUMIN/GLOBULIN RATIO; Value: 1.03; Range: 1.00-1.93; Status: F Lab Order: LIPASE; [facility] 06/15/16 12:38 Test: LIPASE; Value: 114; Range: 73-393; Units: U/L; Status: F Lab Order: CARDIAC MARKER PANEL; [facility] 06/16/16 00:17 Test: CPK CREATINE PHOSPHOKINASE; Value: 39; Range: 39-308; Units: U/L; Status: F Test: CK-MB VALUE MASS; Value: 1.4; Range: 0.0-3.6; Units: NG/ML; Status: F Test: MB/CK RELATIVE INDEX; Value: 3.58; Range: < OR =4; Status: F Test: TROPONIN I; Value: 0.02; Range: < 0.10; Units: NG/ML; Status: F Test Note: ; DIAGNOSIS CRITERIA MMB ng/ml Relative Index (RI) NON-AMI < or = 5 N/A [place]ONE > 5 < or = 4 AMI > 5 > 4 Lab Order: BASIC METABOLIC PROFILE; [facility]06/16/16 06:51 Test: GLUCOSE, FASTING; Value: 88; Range: 83-110; Units: MG/DL; Status: F Test: BLOOD UREA NITROGEN; Value: 9; Range: 7-18; Units: MG/DL; Status: F Test: CREATININE FOR GFR; Value: 0.72; Range: 0.70-1.30; Units: MG/DL; Status: F Test: GLOMERULAR FILTRATION RATE; Value: > 60.0; Range: >42; Status: F Test: SODIUM LEVEL; Value: 140; Range: 136-145; Units: MEQ/L; Status: F Test: POTASSIUM SERUM; Value: 3.8; Range: 3.5-5.1; Units: MEQ/L; Status: F Test: CHLORIDE LEVEL; Value: 108; Range: 98-107; Abnormal: Above high normal; Units: MEQ/L; Status: F Test: CARBON DIOXIDE LEVEL; Value: 26; Range: 21-32; Units: MEQ/L; Status: F Test: ANION GAP; Value: 6; Range: 8-16; Abnormal: Below low normal; Units: MEQ/L; Status: F Test: CALCIUM LEVEL; Value: 8.2; Range: 8.8-10.2; Abnormal: Below low normal; Units: MG/DL; Status: F Test Note: ; Units are mL/min/1.73 m2 Chronic Kidney Disease Staging per NKF: Stage I & II GFR >=60 Normal to Mildly Decreased Stage III GFR 30-59 Moderately Decreased Stage IV GFR 15-29 Severely Decreased Stage V GFR <15 Very Little GFR Left ESRD GFR <15 on BODS DEVELOPER Test: URIC ACID; Range: 3.5-7.2; Units: MG/DL; Status: I Lab Order: CBC WITH DIFFERENTIAL; SPEC06/16/16 06:51 Test: WHITE BLOOD COUNT; Value: 3.4; Range: 4.0-10.0; Abnormal: Below low normal; Units: K/mm3; Status: F Test: RED BLOOD COUNT; Value: 3.87; Range: 4.30-6.10; Abnormal: Below low normal; Units: M/mm3; Status: F Test: HEMOGLOBIN; Value: 10.7; Range: 14.0-18.0; Abnormal: Below low normal; Units: g/dl; Status: F Test: HEMATOCRIT; Value: 33.2; Range: 42.0-52.0; Abnormal: Below low normal; Units: %; Status: F Test: MEAN CORPUSCULAR VOLUME; Value: 85.8; Range: 80.0-96.0; Units: fl; Status: F Test: MEAN CORPUSCULAR HEMOGLOBIN; Value: 27.6; Range: 27.0-33.0; Units: pg; Status: F Test: MEAN CORPUSCULAR HGB CONC; Value: 32.2; Range: 32.0-36.5; Units: g/dl; Status: F Test: RED CELL DISTRIBUTION WIDTH; Value: 15.0; Range: 11.5-14.5; Abnormal: Above high normal; Units: %; Status: F Test: PLATELET COUNT, AUTOMATED; Value: 275; Range: 150-450; Units: k/mm3; Status: F Test: NEUTROPHILS %; Value: 76.0; Range: 36.0-66.0; Abnormal: Above high normal; Units: %; Status: F Test: LYMPH %; Value: 16.0; Range: 24.0-44.0; Abnormal: Below low normal; Units: %; Status: F Test: MONO %; Value: 4.9; Range: 0.0-5.0; Units: %; Status: F Test: EOS %; Value: 1.8; Range: 0.0-3.0; Units: %; Status: F Test: BASO %; Value: 0.2; Range: 0.0-1.0; Units: %; Status: F Test: LARGE UNSTAINED CELL %; Value: 1.1; Range: 0.0-4.0; Units: %; Status: F Test: NEUTROPHILS #; Value: 2.6; Range: 1.8-7.7; Units: K/mm3; Status: F Test: LYMPH #; Value: 0.6; Range: 1.5-4.5; Abnormal: Below low normal; Units: K/mm3; Status: F Test: MONO #; Value: 0.2; Range: 0.0-0.8; Units: K/mm3; Status: F Test: EOS #; Value: 0.1; Range: 0.0-0.50; Units: K/mm3; Status: F Test: BASO #; Value: 0.0; Range: 0.0-0.2; Units: K/mm3; Status: F Test: LARGE UNSTAINED CELL #; Value: 0.0; Range: 0.0-0.4; Units: K/mm3; Status: F Lab Order: CARDIAC MARKER PANEL; SPEC'M 06/16/16 06:51 Test: CPK CREATINE PHOSPHOKINASE; Value: 36; Range: 39-308; Abnormal: Below low normal; Units: U/L; Status: F Test: CK-MB VALUE MASS; Value: 1.3; Range: 0.0-3.6; Units: NG/ML; Status: F Test: MB/CK RELATIVE INDEX; Value: 3.61; Range: < OR =4; Status: F Test: TROPONIN I; Value: 0.02; Range: < 0.10; Units: NG/ML; Status: F Test Note: ; DIAGNOSIS CRITERIA MMB ng/ml Relative Index (RI) NON-AMI < or = 5 N/A [place]ONE > 5 < or = 4 AMI > 5 > 4 Lab Order: URIC ACID; SPEC'M 06/16/16 06:51 Test: URIC ACID; Value: 6.1; Range: 3.5-7.2; Units: MG/DL; Status: F Radiology Order: EKG-ADULT Test: EKG-ADULT REASON FOR EXAMINATION: Chest Pain; Stationary ECG Study; [facility] - ED; ; Test Date: 2016-06-15; Pat Name: MARGARITO MAHONEY Department:; Room: -; Gender: M Instructor Kindergarten:; : 1945 Requested By: Lakesha Aguayo; Order Number: [id number] Reading MD: Lakesha Aguayo; Measurements; Intervals [place]; Rate: 84 P: 70; MT: 193 QRS: 54; QRSD: 102 T: 73; QT: 349; QTc: 414; Interpretive Statements; SINUS RHYTHM; NSTTW ABNORMALITY; NO PRIOR FOR COMPARISON; Electronically Signed On 06-16-2016 8:32:53 EST by Lakesha Aguayo; Radiology Order: portable chest Test: portable chest REASON FOR EXAMINATION: Chest Pain; Clinical: Chest pain .; ; Comparison: 03/30/2016 .; ; Findings:; The mediastinum and cardiac silhouette are stable and within normal limits for; portable technique. The lung seals are clear without acute consolidation,; effusion, or pneumothorax. Skeletal structures are intact.; ; Impression:; Normal portable chest x-ray; ; ; Signed by; Stanley Tatum MD 06/15/2016 12:51 P; Radiology Order: CT Chest Angio R/O PE Test: CT Chest Angio R/O PE REASON FOR EXAMINATION: elevated d-dimer chest pain sob; Clinical: Acute chest pain with elevated D-dimer levels.; ; Technique: Axial contrast enhanced images from the thoracic inlet to the upper; abdomen using 100 ml Isovue 370 intravenous contrast material with coronal and; sagittal re-formations.; ; Findings: Satisfactory enhancement of the pulmonary vasculature is achieved and; no filling defects are identified to suggest pulmonary embolus. Thoracic aorta; is normal caliber without aneurysm or dissection. Heart and pericardium are; normal. Lung seals demonstrate chronic emphysematous changes with; bronchiectasis and right lower lobe scarring. No acute consolidation, pleural; effusion or pneumothorax. No significant adenopathy. Musculoskeletal structures; demonstrate age-related changes without focal osseous abnormality.; ; Impression:; No evidence for pulmonary embolus.; Chronic emphysematous changes with bronchiectasis and right lower lobe scarring.; No acute pleuroparenchymal or mediastinal process.; ; ; Signed by; Stanley Tatum MD 06/15/2016 02:12 P; Radiology Order: GALLBLADDER US Test: GALLBLADDER US REASON FOR EXAMINATION: right inguinal fullness. nausea; ; Clinical history: nausea, weight loss.; Findings: The pancreas is limited in visualization secondary to overlying bowel gas, but appears benita; sly unremarkable. The liver demonstrates uniform echotexture and echogenicity, with no mass lesions.; The gallbladder is unremarkable. The common bile duct measures 6 mm and is within normal limits. The; right kidney measures 11.5 x 7.2 x 5.3 cm and is unremarkable. There is no ascites.; Impression: Unremarkable ultrasound examination of the right upper quadrant.; ; Radiology Order: Pelvis, limited US Test: Pelvis, limited US REASON FOR EXAMINATION: RT INGUINAL FULLNESS; ; Clinical history: right inguinal fullness.; Findings: Real-time ultrasound imaging of the right inguinal region was performed. There is no eviden; ce of a hernia. Normal heterogeneous fibroglandular tissue is noted. No focal defined mass or cystic; lesion is appreciated. No evidence of calcifications are appreciated. No other gross abnormalities.; Impression: Unremarkable ultrasound examination of the right inguinal region. No evidence of a hernia; .; ; Outcome: 16:07 Decision to Hospitalize by Provider. sd1 18:55 CT Study completed. [facility] 06/16 10:55 Patient left the ED. hs1 Signatures: Dispatcher [employer] EDMS Lakesha Aguayo MD MD sd1 Manoj OrourkeRN RN ms2 Floyd ChandlerRN RN Barbara De Santiago, RN ERICA [facility] Brodie Shane, Jun Reg Valdez Crawford RN RN mlb1 Sarita PringleRN RN ck1 Viraj Bernard MD MD br1 Priti Clayton RN RN hs1 Brenda Acosta,RN Mayra Villa, RN RN sls1 Deepak Morgan jml1 Concepcion Urrutia,RN RN ms18 German, Mohamud, SPORTS PHYSIOLOGIST SPORTS PHYSIOLOGIST jrd Rivera, Amy, SPORTS PHYSIOLOGIST SPORTS PHYSIOLOGIST rs6 Shelly Zuniga,RN RN js15 Rosalinda Mao Jennalee jp5 Urrutia,Eleanor,RN RN kas2 Dania Elizabeth lr2 Corrections: (The following items were deleted from the chart) 06/15 15:51 15:47 LIVER PROFILE+LAB sent. ck1 EDMS 15:47 LIPASE+LAB sent. 1 EDMS 21:36 21:15 Urine 300, (Voided), Output Total 300. ms2 ms2 Chart Complete MTDD
--- NOTE | 2016-06-18 11:56 | EDDOCDS ---
Physician Documentation [facility] Name: Nic Mahoney Age: 70 yrs Sex: Male : 1945 Arrival Date: 06/15/2016 Time: 12:11 Bed Admit Hold Private MD: Disposition: 06/15/16 16:07 Hospitalization ordered by Erika Aguirre for Inpatient Admission. Preliminary diagnosis is Chest pain, unspecified. - Bed requested for [facility] (Formerly [facility]). - Status is Inpatient Admission. hs1 - Condition is Stable. - Problem is new. - Symptoms are resolved. Historical: - Allergies: Procardia ("squirrely" goofy feeling); - Home Meds: 1. rosuvastatin 10 mg oral tab 1 tab once daily (Last dose: 06/14/2016) 2. Nitrostat 0.4 mg SL subl (Last dose: 06/15/2016 11:30) 3. hydroxychloroquine 200 mg oral tab 2 times per day (Last dose: 06/14/2016) 4. famotidine 20 mg Oral tab 1 tab once daily (Last dose: 06/14/2016) 5. methotrexate sodium 2.5 mg Oral tab 4 tabs every 12 hours on saturdays 6. folic acid 1 mg Oral tab 1 tab once daily (Last dose: 06/14/2016) - PMHx: Rheumatoid Arthritis; GERD; Hypercholesterolemia; prostates cancer; hernia; - PSHx: 5 cardiac stents; Prostatectomy; Hernia repair; - Social history: Smoking status: Patient states former smoker of tobacco. No barriers to communication noted, The patient speaks fluent Sudanese, Speaks appropriately for age. - Family history: Not pertinent. - : The pt / caregiver states he / she is not on anticoagulants. Home medication list is obtained from the patient. - Exposure Risk Screening:: None identified. Vital Signs: 06/15 12:01 BP 163 / 77 (auto/); mlb1 12:01 Pulse 82 MON; Pulse Ox 93% ; mlb1 12:13 BP 113 / 59; Pulse 95; Resp 20; Temp 97.0(O); Weight 77.11 kg / 170 lbs (R); Height 5 lr2 ft. 11 in. (180.34 cm); Pain 7/10; 12:30 BP 108 / 62 (auto/); mlb1 12:32 Pulse 86 MON; Pulse Ox 91% ; mlb1 13:00 Pulse 80 MON; Pulse Ox 100% ; mlb1 13:00 BP 103 / 57 (auto/); mlb1 13:30 BP 105 / 59 (auto/); mlb1 13:30 Pulse 76 MON; Pulse Ox 100% ; mlb1 14:00 BP 114 / 61 (auto/); mlb1 14:00 Pulse 78 MON; Pulse Ox 96% ; mlb1 14:30 BP 102 / 62 (auto/); mlb1 14:30 Pulse 78 MON; Pulse Ox 100% ; mlb1 15:00 BP 106 / 62 (auto/); mlb1 15:00 Pulse 78 MON; Pulse Ox 98% ; mlb1 15:30 BP 107 / 65 (auto/); mlb1 15:30 Pulse 76 MON; Pulse Ox 99% ; mlb1 16:01 BP 114 / 67 (auto/); mlb1 16:01 Pulse 76 MON; Pulse Ox 100% ; mlb1 16:31 BP 117 / 61 (auto/); mlb1 16:31 Pulse 76 MON; Pulse Ox 96% ; mlb1 17:01 BP 116 / 64 (auto/); mlb1 17:01 Pulse 76 MON; Pulse Ox 97% ; mlb1 17:31 BP 110 / 63 (auto/); mlb1 17:31 Pulse 74 MON; Pulse Ox 99% ; mlb1 18:01 BP 127 / 70 (auto/); mlb1 18:01 Pulse 74 MON; Pulse Ox 99% ; mlb1 18:31 BP 149 / 76 (auto/); mlb1 18:31 Pulse 84 MON; Pulse Ox 99% ; mlb1 19:31 BP 117 / 63 (auto/); js15 19:31 Pulse 94 MON; Pulse Ox 98% ; js15 20:01 BP 98 / 72 (auto/); js15 20:02 Pulse 76 MON; Pulse Ox 97% ; js15 20:31 BP 129 / 61 (auto/); js15 20:31 Pulse 74 MON; Pulse Ox 97% ; js15 21:01 BP 122 / 70 (auto/); js15 21:01 Pulse 70 MON; Pulse Ox 97% ; js15 12:13 Body Mass Index 23.71 (77.11 kg, 180.34 cm) lr2 MDM: 12:15 ECG WITH READING ER PHYS+CARDIAG ordered. EDMS 12:26 Group Program Manager/Pulse Ox/q 30 min VS ordered. sd1 12:26 IV Saline Lock ordered. sd1 12:26 Rhythm Strip to chart ordered. sd1 12:26 Undress patient appropriately for examination ordered. sd1 12:26 Basic Metabolic Profile Ordered. EDMS 12:26 CBC with Diff Ordered. EDMS 12:26 Cardiac Injury Profile Ordered. EDMS 12:26 Troponin Ordered. EDMS 12:28 portable chest Ordered. EDMS 13:04 CBC with Diff Reviewed. sd1 13:06 D-Dimer Quant Ordered. EDMS 13:28 D-Dimer Quant Reviewed. sd1 13:28 Basic Metabolic Profile Reviewed. sd1 13:28 Cardiac Injury Profile Reviewed. sd1 13:28 Troponin Reviewed. sd1 13:28 portable chest Reviewed. sd1 13:32 NS 0.9% 1000 ml IV at 100 mL/hr continuous ordered. sd1 13:32 CT Chest Angio R/O PE Ordered. EDMS 13:46 Financial registration complete. jp5 14:04 [facility] Payment Agreement was scanned into [employer] and attached to record. jp5 15:40 GI Cocktail - (Alum-Mag Hydroxide-Simeth 30 ml, Lidocaine 10 ml, Hyoscyamine 10 ml) PO sd1 once; Pre-mixed 50mL unit dose ordered. 15:42 CT Chest Angio R/O PE Reviewed. sd1 15:44 BED REQUEST+ADM ordered. EDMS 16:47 Sucralfate 1 grams PO once ordered. sd1 16:47 LIVER PROFILE Reviewed. sd1 16:47 Basic Metabolic Profile Reviewed. sd1 16:47 Cardiac Injury Profile Reviewed. sd1 16:47 Troponin Reviewed. sd1 16:47 LIPASE Reviewed. sd1 17:50 REGULAR+DIET ordered. EDMS 20:33 Admission / Observation Status ordered. EDMS 20:34 NO ADDED SALT DIET ordered. EDMS 20:35 CARDIAC MARKER PANEL Ordered. EDMS 20:35 BASIC METABOLIC PROFILE Ordered. EDMS 20:35 CBC WITH DIFFERENTIAL Ordered. EDMS 20:35 CARDIAC MARKER PANEL Ordered. EDMS 23:14 GALLBLADDER US Ordered. EDMS 23:16 Pelvis, limited US Ordered. EDMS 06/16 02:27 CARDIAC MARKER PANEL Ordered. EDMS 08:28 ELECTROCARDIOGRAM ADULT ordered. EDMS 08:33 URIC ACID Ordered. EDMS 06/18 08:12 T-Sheet-- Draft Copy was scanned into [employer] and attached to record. 08:12 ECG/EKG was scanned into [employer] and attached to record. 08:13 Radiology Report was scanned into [employer] and attached to record. lg Administered Medications: 06/15 13:35 Drug: NS 0.9% 1000 ml [sodium chloride 0.9 % intravenous solution] Route: IV; Rate: 100 ms2 mL/hr; Site: right antecubital; 15:47 Drug: GI Cocktail - (Alum-Mag Hydroxide-Simeth Suspension 225 mg-200 mg-25 mg/5 mL 30 ck1 ml, Lidocaine Liquid 2 % 10 ml, Hyoscyamine Liquid 10 ml) Route: PO; 17:15 Drug: Sucralfate 1 grams [sucralfate 1 gram tablet (1 tabs)] Route: PO; mlb1 Signatures: Dispatcher [employer] Lakesha Hopper MD MD sd1 Barbara Recinos, RN RN srm Brodie Shane, Reg Reg Valdez Morales RN RN mlb1 Viraj Bernard MD MD br1 Priti Clayton RN RN hs1 Audrey Barry RN RN sls2 Austin Briones jp5 Manoj Orourke RN ms2 Sarita Pringle RN ck1 The chart was reviewed and I authenticate all verbal orders and agree with the evaluation and treatment provided.Corrections: (The following items were deleted from the chart) 15:51 15:44 LIPASE+LAB ordered. EDMS EDMS 15:51 15:44 LIVER PROFILE+LAB ordered. EDMS EDMS 23:14 23:04 ABD COMPLETE US ordered. EDMS EDMS 06/16 02:26 06/15 20:35 CARDIAC MARKER PANEL ordered. EDMS EDMS 06/16 08:33 08:27 URIC ACID ordered. EDMS EDMS 09:49 06/15 20:34 ELECTROCARDIOGRAM ADULT ordered. EDRI EDMS Attachments: 14:04 [facility] Payment Agreement jp5 06/18 08:12 T-Sheet-- Draft Copy 08:12 ECG/EKG Chart Complete MTDD
[2016-06-19] MEDS ORDERED: METHOTREXATE 2.5 MG TAB (J8610) PO SCH ×2 (09:00→21:00)
== END 2016-06-16 16:48 | disposition home or self-care (01) ==
LOC: M ED 12:11 → M ED INP 20:31 → M ALC 06-16 11:00
PROVIDERS: ADMIT General Practice; ATTEND Family Medicine
DX: R07.9 Chest pain, unspecified (principal); R63.4 Abnormal weight loss; M06.9 Rheumatoid arthritis, unspecified; E78.4 Other hyperlipidemia; I25.10 Atherosclerotic heart disease of native coronary artery without angina pectoris; Z79.82 Long term (current) use of aspirin; Z98.61 Coronary angioplasty status; Z87.891 Personal history of nicotine dependence
CPT/HCPCS: 36415; 71010; 71275; 76705; 76857; 80048; 80076; 82550; 82553; 83690; 84484; 84550; 85025; 85379; 93005; 93041; 96372; 99285; G0378; J1650; Q9967

== ENCOUNTER → 2016-08-05 | Outpatient (REF) | payer MEDICARE, OTHER ==
[~2016-08-05] MED LIST: ASPI1TAB PO; FAMO1TAB11 PO; FOLI1TAB2 PO; HYDR200T3 PO; METH2.5TA PO; NITR4TASL SL; PROB1TAB PO; RANI1TAB6 PO; ROSU10TA2 PO; SUCR1TA PO; TUNA OMEGA 3 OIL PO; [UNRECOGNIZED DRUG - OTHER] PO; [UNRECOGNIZED DRUG - OTHER] PO
[2016-08-05 19:41] LABS: BASO % 0.1 % (0.0-1.0); EOS % 0.7 % (0.0-3.0); LARGE UNSTAINED CELL % 0.6 % (0.0-4.0); LYMPH # 0.6 K/mm3 (1.5-4.5); LYMPH % 8.2 % (24.0-44.0); MEAN CORPUSCULAR HEMOGLOBIN 26.4 pg (27.0-33.0); MEAN CORPUSCULAR HGB CONC 31.5 g/dl (32.0-36.5); MEAN CORPUSCULAR VOLUME 83.7 fl (80.0-96.0); MONO # 0.2 K/mm3 (0.0-0.8); MONO % 2.4 % (0.0-5.0); NEUTROPHILS # 6.6 K/mm3 (1.8-7.7); PLATELET COUNT, AUTOMATED 341 k/mm3 (150-450); RED CELL DISTRIBUTION WIDTH 16.2 % (11.5-14.5); WHITE BLOOD COUNT 7.4 K/mm3 (4.0-10.0)
[2016-08-05 20:15] LABS: ALBUMIN 2.6 GM/DL (3.2-5.2); ALBUMIN/GLOBULIN RATIO 0.93 (1.00-1.93); ALKALINE PHOSPHATASE 68 U/L (45-117); ALT/SGPT 30 U/L (12-78); ANION GAP 8 MEQ/L (8-16); AST/SGOT 28 U/L (15-37); BILIRUBIN,TOTAL 0.3 MG/DL (0.2-1.0); BLOOD UREA NITROGEN 10 MG/DL (7-18); CALCIUM LEVEL 8.6 MG/DL (8.8-10.2); CARBON DIOXIDE LEVEL 27 MEQ/L (21-32); CHLORIDE LEVEL 99 MEQ/L (98-107); CREATININE FOR GFR 0.97 MG/DL (0.70-1.30); GLOMERULAR FILTRATION RATE > 60.0 (>42); GLUCOSE, FASTING 110 MG/DL (83-110); POTASSIUM SERUM 4.5 MEQ/L (3.5-5.1); SODIUM LEVEL 134 MEQ/L (136-145); TOTAL PROTEIN 5.4 GM/DL (6.4-8.2)
== END ==
LOC: M SFHCADAM 15:27
PROVIDERS: ATTEND Physician Assistant
DX: R60.0 Localized edema (principal); B97.89 Other viral agents as the cause of diseases classified elsewhere
CPT/HCPCS: 80053; 83880; 85025; G0463

== ENCOUNTER → 2016-08-18 | Outpatient (REF) | payer MEDICARE, OTHER ==
[2016-08-18 13:03] LABS: MEAN CORPUSCULAR HEMOGLOBIN 25.8 pg (27.0-33.0); MEAN CORPUSCULAR HGB CONC 30.6 g/dl (32.0-36.5); MEAN CORPUSCULAR VOLUME 84.4 fl (80.0-96.0); RED CELL DISTRIBUTION WIDTH 16.5 % (11.5-14.5); RETIC HEMOGLOBIN CONTENT CHr 25.7 PG (24-36); RETICULOCYTE % ADVIA2120 2.2 % (0.5-1.5); WHITE BLOOD COUNT 8.2 K/mm3 (4.0-10.0)
[2016-08-18 13:13] LABS: VITAMIN B12 LEVEL 357 PG/ML (247-911)
[2016-08-18 13:14] LABS: FOLATE 10.8 NG/ML (>5.4)
[2016-08-18 13:22] LABS: TOTAL PROTEIN 5.8 GM/DL (6.4-8.2)
[2016-08-18 21:40] LABS: ALBUMIN 2.3 GM/DL (3.2-5.2); ALBUMIN/GLOBULIN RATIO 0.66 (1.00-1.93); ALKALINE PHOSPHATASE 71 U/L (45-117); ALT/SGPT 35 U/L (12-78); ANION GAP 8 MEQ/L (8-16); AST/SGOT 39 U/L (15-37); BILIRUBIN,TOTAL 0.2 MG/DL (0.2-1.0); BLOOD UREA NITROGEN 14 MG/DL (7-18); CALCIUM LEVEL 8.6 MG/DL (8.8-10.2); CARBON DIOXIDE LEVEL 28 MEQ/L (21-32); CHLORIDE LEVEL 102 MEQ/L (98-107); CREATININE FOR GFR 0.86 MG/DL (0.70-1.30); FERRITIN 244 NG/ML (26-388); FREE T4 1.22 NG/DL (0.76-1.46); GLOMERULAR FILTRATION RATE > 60.0 (>42); GLUCOSE, FASTING 102 MG/DL (83-110); POTASSIUM SERUM 4.4 MEQ/L (3.5-5.1); SODIUM LEVEL 138 MEQ/L (136-145); TOTAL IRON BINDING CAPACITY 257 UG/DL (250-450); TOTAL PROTEIN 5.8 GM/DL (6.4-8.2)
[2016-08-19 12:33] LABS: ALBUMIN 2.44 GM/DL (3.29-5.55); ALBUMIN % 42.1 % (55.8-66.1)
[2016-08-20 00:06] LABS: FREE KAPPA LIGHT CHAINS SERUM 104.66 mg/L (3.30-19.40); FREE LAMBDA LIGHT CHAINS SERUM 68.62 mg/L (5.71-26.30); KAPPA/LAMBDA RATIO SERUM 1.53 (0.26-1.65)
== END ==
LOC: M SFHCADAM 10:54
PROVIDERS: ATTEND Family Medicine
DX: D64.9 Anemia, unspecified (principal); R63.4 Abnormal weight loss

== ENCOUNTER → 2016-08-26 | Outpatient (REF) | payer MEDICARE, OTHER ==
[2016-08-29 00:06] LABS: Lyme Disease IgG/IgM Antibodie <0.91 ISR (0.00-0.90); Lyme Disease IgM Ab Quantitati <0.80 index (0.00-0.79)
== END ==
LOC: M SFHCADAM 13:33
PROVIDERS: ATTEND Physician Assistant
DX: D64.9 Anemia, unspecified (principal); R63.4 Abnormal weight loss
CPT/HCPCS: 82784; 86256; 86617; G0463

== ENCOUNTER → 2016-09-08 | Outpatient (REF) | payer MEDICARE, OTHER ==
[2016-09-08 19:03] LABS: MEAN CORPUSCULAR HEMOGLOBIN 26.7 pg (27.0-33.0); MEAN CORPUSCULAR HGB CONC 30.9 g/dl (32.0-36.5); MEAN CORPUSCULAR VOLUME 86.3 fl (80.0-96.0); RED CELL DISTRIBUTION WIDTH 17.9 % (11.5-14.5); WHITE BLOOD COUNT 7.9 K/mm3 (4.0-10.0)
[2016-09-08 19:18] LABS: ALBUMIN 2.7 GM/DL (3.2-5.2); ALBUMIN/GLOBULIN RATIO 0.66 (1.00-1.93); ALKALINE PHOSPHATASE 84 U/L (45-117); ALT/SGPT 18 U/L (12-78); ANION GAP 6 MEQ/L (8-16); AST/SGOT 18 U/L (15-37); BILIRUBIN,TOTAL 0.4 MG/DL (0.2-1.0); BLOOD UREA NITROGEN 15 MG/DL (7-18); CALCIUM LEVEL 9.3 MG/DL (8.8-10.2); CARBON DIOXIDE LEVEL 31 MEQ/L (21-32); CHLORIDE LEVEL 100 MEQ/L (98-107); CREATININE FOR GFR 0.96 MG/DL (0.70-1.30); GLOMERULAR FILTRATION RATE > 60.0 (>42); GLUCOSE, FASTING 100 MG/DL (83-110); MAGNESIUM LEVEL 1.9 MG/DL (1.8-2.4); POTASSIUM SERUM 4.5 MEQ/L (3.5-5.1); SODIUM LEVEL 137 MEQ/L (136-145); TOTAL PROTEIN 6.8 GM/DL (6.4-8.2)
== END ==
LOC: M SFHCADAM 12:04
PROVIDERS: ATTEND Physician Assistant
DX: I48.0 Paroxysmal atrial fibrillation (principal); I25.10 Atherosclerotic heart disease of native coronary artery without angina pectoris; R60.9 Edema, unspecified

== ENCOUNTER → 2016-10-20 | Outpatient (CLI) | payer MEDICARE, OTHER ==
[~2016-10-20] MED LIST changes: +ELIQ5TAB PO; +FERR324T12 PO; -FOLI1TAB2 PO; +FOLI1TAB4 PO; +FURO8SOL PO; +METO1TAB7 PO; +TRAM1CAP15 PO; +[UNRECOGNIZED DRUG - CODE]
--- NOTE | 2016-10-20 16:00 | REP ---
REASON: History of prostate carcinoma now presenting with personality changes and confusion. COMPARISON: None. Gadolinium utilized: 15 mL of ProHance. The cranial vertebral junction is within normal limits. There is no abnormal signal seen in the imaged portion of the spinal cord. The ventricles and sulci are within normal limits for the patient's age. There are no extra axial fluid collections. There is no evidence of mass effect on the noncontrast scan and there are no enhancing mass lesions on the post contrast scan. Scattered T2 and FLAIR deep white matter signal hyperintensities are present. No abnormal signal is seen on the DWI or ABC mapped imaged that would be considered consistent with an area of restricted diffusion from an acute stroke. The orbital and petrous structures, cerebellopontine angles, and posterior fossa are within normal limits. The sella turcica, cavernous, and paracavernous structures are within normal limits. There is T2 hypersignal seen in the ethmoid bulla and maxillary sinuses. IMPRESSION: 1. There is no acute intracranial lesion. There is evidence of deep white matter ischemic change as described above. 2. There is paranasal sinus mucosal thickening. Signed by Eric Kaufman DO 10/21/2016 01:52 P
== END ==
LOC: M RAD 14:01
PROVIDERS: ATTEND Internal Medicine Hematology & Oncology
DX: R41.0 Disorientation, unspecified (principal); F68.8 Other specified disorders of adult personality and behavior; Z85.46 Personal history of malignant neoplasm of prostate; R53.83 Other fatigue
CPT/HCPCS: 70553; A9576

== ENCOUNTER → 2016-10-27 | Outpatient (CLI) | payer MEDICARE, OTHER ==
--- NOTE | 2016-10-27 14:38 | PFTRPT ---
Tech: Dejah JARA RRT Age: 71 Sex: Male Race: Height: 68.50 Inches Weight: 174.00 Lbs BSA: 1.94 Diagnosis: R06.02 PULMONARY FUNCTION REPORT ORDERING PROVIDER: BARBI Turner DATE OF SERVICE: 10/27/16 SPIROMETRY: Excellent technical quality. The forced vital capacity is normal. The FEV1 is in proportion. The obstructive index is, therefore, normal. FLOW VOLUME LOOP: The expiratory limb of the flow volume loop is normal. LUNG VOLUMES: The total lung capacity is normal. The residual volume raises a question of air trapping. DIFFUSION CAPACITY: The diffusion capacity is normal. HEMOGLOBIN: No hemoglobin is available for correction. AIRWAY MECHANICS: Airways resistance and conductance are normal. IMPRESSION: Cannot rule out a degree of air trapping. Please correlate clinically. MTDD
== END ==
LOC: M CARPUL 13:26
PROVIDERS: ATTEND Physician Assistant
DX: R06.02 Shortness of breath (principal); R53.83 Other fatigue; Z85.46 Personal history of malignant neoplasm of prostate

== ENCOUNTER → 2016-10-30 | Outpatient (CLI) | payer MEDICARE, OTHER ==
--- NOTE | 2016-10-30 12:59 | REP ---
Clinical: Pain with recent fall. Technique: AP and lateral views of the thoracic spine. Findings: Moderate age-related degenerative changes include marginal osteophytes with endplate sclerosis and minimal disc space narrowing. Alignment and kyphosis is maintained. No obvious acute fracture / compression injury or subluxation is appreciated. Impression: Moderate multilevel degenerative changes. No obvious acute fracture by radiographic evaluation. If necessary consider CT or MRI for further investigation. Signed by Stanley Tatum MD 10/30/2016 12:51 P
== END ==
LOC: M ADAMS 12:24
PROVIDERS: ATTEND Physician Assistant
DX: M51.34 Other intervertebral disc degeneration, thoracic region (principal)

== ENCOUNTER 2016-10-31 11:00 | Emergency (ER) | payer MEDICARE, OTHER ==
[~2016-10-31] VITALS: Ht 172.7 cm; Wt 78.6 kg
[~2016-10-31 11:00] MED LIST changes: -ELIQ5TAB PO; -FERR324T12 PO; -FURO8SOL PO; -METO1TAB7 PO; -TRAM1CAP15 PO; -[UNRECOGNIZED DRUG - CODE]
[2016-10-31] MEDS ORDERED: FERR324T12 PO (11:17)
[2016-10-31] MEDS ORDERED: [UNRECOGNIZED DRUG - CODE] (11:17)
[2016-10-31] MEDS ORDERED: ELIQ5TAB PO (11:17)
[2016-10-31] MEDS ORDERED: FURO8SOL PO (11:17)
[2016-10-31] MEDS ORDERED: TRAM1CAP15 PO (11:19)
[2016-10-31] MEDS ORDERED: METO1TAB7 PO (11:19)
[2016-10-31] MEDS ORDERED: ASPIRIN 81 MG CHEW TABLET PO ONE (11:30)
--- NOTE | 2016-10-31 11:53 | REP ---
Clinical: Chest pain. Comparison: 06/15/2016. Findings: Bibasilar atelectasis and possible left lower lobe infiltrate cannot be excluded. Evaluation is limited by portable technique / underpenetration and poor inspiratory effort. No pneumothorax. Impression: Bibasilar atelectasis and possible left lower lobe/retrocardiac infiltrate. Signed by Stanley Tatum MD 10/31/2016 11:44 A
[2016-10-31 12:05] LABS: BASO % 0.1 % (0.0-1.0); EOS % 0.2 % (0.0-3.0); LARGE UNSTAINED CELL # 0.1 K/mm3 (0.0-0.4); LYMPH # 0.9 K/mm3 (1.5-4.5); LYMPH % 14.1 % (24.0-44.0); MEAN CORPUSCULAR VOLUME 84.4 fl (80.0-96.0); MONO # 0.3 K/mm3 (0.0-0.8); MONO % 4.4 % (0.0-5.0); NEUTROPHILS % 80.2 % (36.0-66.0); PLATELET COUNT, AUTOMATED 254 k/mm3 (150-450); RED CELL DISTRIBUTION WIDTH 16.1 % (11.5-14.5); WHITE BLOOD COUNT 6.2 K/mm3 (4.0-10.0)
[2016-10-31 12:06] LABS: ADD MORPHOLOGY? NO
[2016-10-31] MEDS ORDERED: ACETAMINOPHEN TAB 650MG DOSE (2X325MG) As Ordered ONE (12:08)
[2016-10-31] MEDS ORDERED: ACETAMINOPHEN TAB 650MG DOSE (2X325MG) PO ONE (12:15)
[2016-10-31 12:27] LABS: ANION GAP 8 MEQ/L (8-16); BLOOD UREA NITROGEN 11 MG/DL (7-18); CALCIUM LEVEL 8.7 MG/DL (8.8-10.2); CARBON DIOXIDE LEVEL 26 MEQ/L (21-32); CHLORIDE LEVEL 94 MEQ/L (98-107); CREATININE FOR GFR 0.93 MG/DL (0.70-1.30); GLOMERULAR FILTRATION RATE > 60.0 (>42); GLUCOSE, FASTING 103 MG/DL (83-110); POTASSIUM SERUM 4.5 MEQ/L (3.5-5.1); SODIUM LEVEL 128 MEQ/L (136-145)
[2016-10-31] MEDS ORDERED: ISOVUE-370 76% 100ML VIAL (Q9967) As Ordered ONE (12:44)
--- NOTE | 2016-10-31 13:13 | REP ---
Clinical: Chest pain and dyspnea. Rule out pulmonary embolus. Technique: Axial contrast enhanced images from the thoracic inlet to the upper abdomen using 100 ml Isovue 370 intravenous contrast material with multiplanar re-formations. Comparison: 04/12/2016. Findings: Satisfactory enhancement of the pulmonary vasculature is achieved and no filling defects are identified to suggest pulmonary embolus. However, distal branch pulmonary arteries to the lower lobes are incompletely evaluated due to respiratory motion and associated atelectasis and small effusions. Cardiomegaly and pulmonary vasculature congestion is appreciated and findings likely represent elements of CHF and pulmonary edema. Thoracic aorta without aneurysm or dissection. Surrounding musculoskeletal structures are intact. Impression: 1. No evidence for pulmonary embolus. 2. Cardiomegaly with pulmonary vascular congestion including lower lobe atelectasis and small pleural effusions. Signed by Stanley Tatmu MD 10/31/2016 01:04 P
[2016-10-31] MEDS ORDERED: METOPROLOL 5 MG/5 ML VIAL IV STA (13:46)
[2016-10-31] MEDS ORDERED: DIGOXIN INJ 0.5 MG/2 ML AMP (J1160) IV ONE (15:00)
[2016-10-31 16:05] VITALS: BP 98/54
--- NOTE | 2016-10-31 18:04 | ECGEPIP ---
Stationary ECG Study [facility] - ED Test Date: 2016-10-31 Pat Name: MARGARITO ARAUJO Department: Room: - Gender: M Payment Analyst: song : 1945 Requested By: VISHAL Zamudio Order Number: [id number] Reading MD: Stone Cooper Measurements Intervals [place] Rate: 129 P: AK: 0 QRS: 6 QRSD: 98 T: 67 QT: 292 QTc: 429 Interpretive Statements ATRIAL FIBRILLATION WITH RAPID VENTRICULAR RESPONSE NONSPECIFIC T-WAVE ABNORMALITY RHYTHM CHANGE COMPARED TO 06/16/16 Electronically Signed On 10-31-2016 18:04:25 EDT by Stone Cooper
== END 2016-10-31 16:12 | disposition short-term general hospital (02) ==
LOC: M ED 11:00
DX: I48.91 Unspecified atrial fibrillation (principal); R50.9 Fever, unspecified; J81.1 Chronic pulmonary edema; I25.10 Atherosclerotic heart disease of native coronary artery without angina pectoris; E78.5 Hyperlipidemia, unspecified; K21.9 Gastro-esophageal reflux disease without esophagitis; M51.36 Other intervertebral disc degeneration, lumbar region; Z85.46 Personal history of malignant neoplasm of prostate; Z95.5 Presence of coronary angioplasty implant and graft; Z87.891 Personal history of nicotine dependence; Z79.899 Other long term (current) drug therapy; Z79.01 Long term (current) use of anticoagulants; Z88.8 Allergy status to other drugs, medicaments and biological substances
CPT/HCPCS: 36415; 71010; 71275; 80048; 81001; 82550; 82553; 83880; 84484; 85025; 87040; 87086; 93005; 93041; 94760; 96374; 99285; J1160; Q9967

== ENCOUNTER → 2016-11-04 | Outpatient (REF) | payer MEDICARE, OTHER ==
[~2016-11-04] MED LIST changes: +ELIQ5TAB PO; +FERR324T12 PO; +FURO8SOL PO; +METO1TAB7 PO; +TRAM1CAP15 PO; +[UNRECOGNIZED DRUG - CODE]
[2016-11-04 12:51] LABS: MEAN CORPUSCULAR HEMOGLOBIN 26.1 pg (27.0-33.0); MEAN CORPUSCULAR HGB CONC 30.8 g/dl (32.0-36.5); RED CELL DISTRIBUTION WIDTH 15.9 % (11.5-14.5); RETIC HEMOGLOBIN CONTENT CHr 23.4 PG (24-36); RETICULOCYTE % 1.8 % (0.5-1.5); WHITE BLOOD COUNT 4.6 K/mm3 (4.0-10.0)
[2016-11-04 13:16] LABS: ALBUMIN 2.5 GM/DL (3.2-5.2); ALBUMIN/GLOBULIN RATIO 0.61 (1.00-1.93); ALKALINE PHOSPHATASE 93 U/L (45-117); ALT/SGPT 28 U/L (12-78); ANION GAP 8 MEQ/L (8-16); AST/SGOT 27 U/L (15-37); BILIRUBIN,TOTAL 0.3 MG/DL (0.2-1.0); BLOOD UREA NITROGEN 7 MG/DL (7-18); CALCIUM LEVEL 8.7 MG/DL (8.8-10.2); CARBON DIOXIDE LEVEL 27 MEQ/L (21-32); CHLORIDE LEVEL 102 MEQ/L (98-107); CREATININE FOR GFR 0.65 MG/DL (0.70-1.30); FERRITIN 191 NG/ML (26-388); GLOMERULAR FILTRATION RATE > 60.0 (>42); GLUCOSE, FASTING 79 MG/DL (83-110); POTASSIUM SERUM 4.3 MEQ/L (3.5-5.1); SODIUM LEVEL 137 MEQ/L (136-145); TOTAL IRON BINDING CAPACITY 274 UG/DL (250-450); TOTAL PROTEIN 6.6 GM/DL (6.4-8.2)
== END ==
LOC: M SFHCADAM 09:59
PROVIDERS: ATTEND Family Medicine
DX: D64.9 Anemia, unspecified (principal); M06.00 Rheumatoid arthritis without rheumatoid factor, unspecified site

== ENCOUNTER → 2016-12-22 | Outpatient (CLI) | payer MEDICARE, OTHER ==
--- NOTE | 2016-12-27 08:39 | SLEEPCENT ---
DATE OF PROCEDURE: 12/22/2016 ORDERED BY: Noelle Shoemaker Nocturnal polysomnography was performed due to concern for the obstructive sleep apnea syndrome in this patient with a history of excessive somnolence and nonrestorative sleep. 7 hours and 24 minutes of data were reviewed. There were 173 minutes of sleep identified. Sleep latency was short at 30 seconds. Rapid eye movement (REM) sleep was not achieved. Sleep architecture was severely fragmented. Overall sleep efficiency was poor at 39.4%. The patient's EKG showed atrial fibrillation with an average ventricular response rate of 80 beats per minute. EEG showed fairly normal waveforms for awake and sleep. There were 145 respiratory events identified of 10 seconds in duration or greater for an apnea-hypopnea index of 50.3. The events were primarily obstructive, not exclusive to sleep stage, more frequent in the supine posture. Arousals from respiratory events occurred 49.9 times per hour. Oxygen desaturations were seen into the 80s. There was some limb activity and limb movement arousal index was 4.5. IMPRESSION: Severe obstructive sleep apnea syndrome (G47.33). Apnea-hypopnea index of 50.3. RECOMMENDATION: The patient should be encouraged to return to the sleep disorder center at his earliest convenience for pressure therapy. In the interim, alcohol and sedative avoidance should be practiced and caution exercised during the operation of motor vehicles. Copy To: Jojo Holly
== END ==
LOC: M SLEEP 20:00
PROVIDERS: ATTEND Nurse Practitioner Adult Health
DX: G47.30 Sleep apnea, unspecified (principal)

== ENCOUNTER → 2016-12-28 | Outpatient (REF) | payer MEDICARE, OTHER | LOC: M SFHCADAM 10:09 | PROVIDERS: ATTEND Family Medicine | DX: E88.09 Other disorders of plasma-protein metabolism, not elsewhere classified (principal); Z53.8 Procedure and treatment not carried out for other reasons ==

== ENCOUNTER → 2016-12-30 | Outpatient (CLI) | payer MEDICARE, OTHER ==
--- NOTE | 2016-12-31 21:08 | SLEEPCENT ---
DATE OF PROCEDURE: 12/30/2016 REFERRING PHYSICIAN: Noelle Shoemaker Nocturnal polysomnography was performed for the titration of pressure therapy in this patient with severe obstructive sleep apnea syndrome, apnea/hypopnea index of 50. For testing, a Where's Up Simplus full face mask of large size was used, 4 cm of water pressure were applied to the circuit and the lights were extinguished. 8 hours and 18 minutes of data were reviewed. There were 377 minutes of sleep identified. Sleep latency was short at 1 minute. Rapid eye movement (REM) sleep was prolonged at 192 minutes. Sleep architecture did improve late in the study and there were four REM periods appreciated. Overall sleep efficiency was 76.5%. The patient's EKG showed atrial fibrillation with variable ventricular response rate. Average response rate was 72 beats per minute. Rate ranged 50 to 95. EEG showed normal waveforms for awake and sleep. Persistence of respiratory events prompted and increase in CPAP pressure and despite optimal mask fit and minimal air leak, the patient required a change to a bilevel device shortly after 1:00 a.m. Best sleep was seen on bilevel therapy, inspiratory pressure 10 over expiratory pressure 6. Despite bilevel therapy, occurrence of central apneas was noted. On retrospective review of the record, these were not associated with significant oxygen desaturations. Some limb activity also persisted despite pressure therapy. Limb movement arousal index was 6.5, up only slightly from the diagnostic study. IMPRESSION: Severe obstructive sleep apnea syndrome (G47.33). RECOMMENDATION: Nightly use of bilevel pressure therapy, inspiratory pressure 10 over expiratory pressure 6 should result in significant improvement in sleep symptoms. Given the complexity of this patient's disease, if symptoms persist, retitration and consideration of the addition of backup rate to address central apnea may be needed.
== END ==
LOC: M SLEEP 19:49
PROVIDERS: ATTEND Nurse Practitioner Adult Health
DX: G47.33 Obstructive sleep apnea (adult) (pediatric) (principal)

== ENCOUNTER → 2017-01-12 | Outpatient (CLI) | payer MEDICARE, OTHER ==
--- NOTE | 2017-01-14 15:01 | REP ---
Whole body radionuclide PET / CT scan: Comparison is the chest CT dated 11/07/2016. There is a [place], [place]. On the comparison study is suspected cavitary lesion is identified in the posterior sulcus of the right lower lobe. There is also a small right pleural effusion. On the CT accompanying the PET scan today, there are similar findings in the right lower lobe. Whole body PET CT scan is performed from skull base to the upper thighs. The neck and supraclavicular areas: There are no hypermetabolic foci. There is artifactual uptake in the masseter muscles bilaterally. Chest: There is no uptake in the cavitary appearing lesion or pleural effusion in the posterior sulcus of the right lung. There is no uptake elsewhere in the right and the left lung seals. There is a hypermetabolic focus in the right hilus with a maximal standard uptake value of 3.4. There is a hypermetabolic focus in the subcarinal zone with a standard uptake value of 3.3. There is a non hypermetabolic focus in the left axilla with a standard uptake value of 1.9. There are no other foci in the chest. Abdomen, pelvis and upper thighs: There is a focus of hypermetabolic uptake in the left femoral neck with a standard uptake value of 3.1. There is borderline hypermetabolic uptake in a normal size left inguinal node anterior to the left acetabulum with the standard uptake value of 2.9. Impression: There is no uptake in the posterior sulcus of the right lung. There are four hypermetabolic foci in the right hilus and in the mediastinal subcarinal zone. There are borderline hypermetabolic foci in the left femoral neck and in a left inguinal node. The study is performed with 10 mCi of F 18 FDG. Signed by Chun Dewitt MD 01/14/2017 02:53 P
== END ==
LOC: M PLARAD 09:08
PROVIDERS: ATTEND Family Medicine
DX: R91.1 Solitary pulmonary nodule (principal)
CPT/HCPCS: 78815; A9552

== ENCOUNTER → 2017-01-19 | Outpatient (REF) | payer MEDICARE, OTHER ==
[2017-01-19 18:14] LABS: ALBUMIN 2.6 GM/DL (3.2-5.2); ALKALINE PHOSPHATASE 137 U/L (45-117); ALT/SGPT 57 U/L (12-78); ANION GAP 7 MEQ/L (8-16); AST/SGOT 53 U/L (15-37); BILIRUBIN,TOTAL 0.3 MG/DL (0.2-1.0); BLOOD UREA NITROGEN 18 MG/DL (7-18); CARBON DIOXIDE LEVEL 28 MEQ/L (21-32); CHLORIDE LEVEL 95 MEQ/L (98-107); CREATININE FOR GFR 0.72 MG/DL (0.70-1.30); DIGOXIN LEVEL 0.7 NG/ML (0.5-2.0); GLOMERULAR FILTRATION RATE > 60.0 (>42); GLUCOSE, FASTING 107 MG/DL (83-110); POTASSIUM SERUM 4.8 MEQ/L (3.5-5.1); SODIUM LEVEL 130 MEQ/L (136-145); TOTAL PROTEIN 6.9 GM/DL (6.4-8.2)
[2017-01-19 18:36] LABS: TOTAL VOLUME, URINE 3200 ML
== END ==
LOC: M SFHCADAM 14:11
PROVIDERS: ATTEND Family Medicine
DX: E88.09 Other disorders of plasma-protein metabolism, not elsewhere classified (principal)

== ENCOUNTER → 2017-02-14 | Outpatient (CLI) | payer MEDICARE, OTHER ==
--- NOTE | 2017-02-14 15:23 | REP ---
CT of the chest without IV contrast: Comparison 11/17/2016. There is a tiny 2 mm nodule along the superior portion of the major fissure on image 43, not significantly changed possibly slightly decreased in size. I suspect there is calcification within this nodule. The cystic lesion identified in the posterior sulcus of the right lung previously is no longer identified. There are small bilateral pleural effusions, not significantly changed. There is atelectasis adjacent to these effusions. This is slightly improved on the right. The atelectasis on the left has increased. There are no other nodules or masses. There are no other infiltrates or effusions. There is no mediastinal or axillary adenopathy. Thoracic aorta is unremarkable. Cardiac size is upper normal. The visualized upper abdominal contents are unremarkable. Impression: Small bilateral pleural effusions are unchanged. There is atelectasis adjacent to the effusions. Atelectasis in the left lower lobe has increased. Atelectasis in the right lower lobe has decreased. The previous cystic lesion in the posterior sulcus of the right lung is no longer identified. There is a 2 mm nodule along the superior portion of the right major fissure on image 43, possibly slightly decreased in size. I suspect there is calcification within this lesion. Signed by Chun Dewitt MD 02/14/2017 03:14 P
== END ==
LOC: M RAD 13:09
PROVIDERS: ATTEND Internal Medicine Pulmonary Disease
DX: J90 Pleural effusion, not elsewhere classified (principal); J98.4 Other disorders of lung; R91.8 Other nonspecific abnormal finding of lung field